=== PATIENT | female | born 1975 | race Caucasian/White ===

== ENCOUNTER → 2017-02-02 | Outpatient (CLI) | payer BC | END | disposition home or self-care (01) | LOC: C.LABSPEC 18:17 | PROVIDERS: ATTEND Physician Assistant Medical | DX: D50.9 Iron deficiency anemia, unspecified (principal) ==

== ENCOUNTER → 2017-02-05 | Outpatient (CLI) | payer BC ==
[2017-02-05 12:58] LABS: BASO % 0.3 %; BASO ABS # 0.02 K/uL (0-0.2); COMPLETE YES; EOS % 1.8 %; HEMATOCRIT 39.5 % (37-47); IG% 0.3 %; LYMPH ABS # 1.91 K/uL (1.2-3.4); MEAN CELL VOLUME 86.6 fL (80-100); MEAN CORPUSCULAR HEMOGLOBIN 28.9 pg (25-34); MEAN CORPUSCULAR HGB CONC 33.4 g/dl (32-36); MEAN PLATELET VOLUME 9.7 fL (7.4-10.4); MONO % 7.8 %; NEUT % 62.8 %; PLATELET COUNT 357 K/uL (130-400); RED BLOOD COUNT 4.56 M/uL (4.2-5.4); WHITE BLOOD COUNT 7.07 K/uL (4.8-10.8)
[2017-02-05 13:42] LABS: THYROID STIMULATING HORMONE 1.95 uIu/ml (0.300-4.500)
== END | disposition home or self-care (01) ==
LOC: C.LAB 12:37
PROVIDERS: ATTEND Physician Assistant Medical
DX: D50.9 Iron deficiency anemia, unspecified (principal); R79.9 Abnormal finding of blood chemistry, unspecified

== ENCOUNTER → 2017-02-10 | Outpatient (CLI) | payer BC ==
[2017-02-10 18:20] LABS: FERRITIN 7.5 ng/ml (8.0-388.0)
== END | disposition home or self-care (01) ==
LOC: C.LABBFT 02-02 18:00
PROVIDERS: ATTEND Physician Assistant Medical
DX: D50.9 Iron deficiency anemia, unspecified (principal)

== ENCOUNTER → 2017-03-10 | Outpatient (CLI) | payer BC ==
--- NOTE | 2017-03-11 15:02 | MAMMOGRAPHY REPORT ---
BILATERAL DIGITAL SCREENING MAMMOGRAM TOMOSYNTHESIS WITH CAD: 03/10/2017 CLINICAL HISTORY: Routine screening. Baseline exam. TECHNIQUE: Breast tomosynthesis in addition to standard 2D mammography was performed. Current study was also evaluated with a Computer Aided Detection (CAD) system. COMPARISON: No prior exams were available for comparison. BREAST COMPOSITION: The tissue of both breasts is almost entirely fatty. FINDINGS: No suspicious masses, calcifications, or areas of architectural distortion are noted in e ither breast. IMPRESSION: ACR BI-RADS CATEGORY 1: NEGATIVE There is no mammographic evidence of malignancy. A 1 year screening mammogram is recommended. The p atient will receive written notification of the results. Approximately 10% of breast cancers are not detected with mammography. A negative mammographic repor t should not delay biopsy if a clinically suggestive mass is present. Gloria Hampton M.D. ah/:03/10/2017 15:32:31 Rack Washer: Estrella DARDEN(R)(M), [facility] letter sent: Normal 1/2 BI-RADS Code: ACR BI-RADS Category 1: Negative
== END | disposition home or self-care (01) ==
LOC: C.MAMM 15:01
PROVIDERS: ATTEND Internal Medicine
DX: Z12.31 Encounter for screening mammogram for malignant neoplasm of breast (principal)

== ENCOUNTER → 2017-07-06 | Outpatient (CLI) | payer BC ==
[2017-07-06 16:41] LABS: BASO % 0.3 %; BASO ABS # 0.02 K/uL (0-0.2); COMPLETE YES; EOS % 1.9 %; HEMATOCRIT 41.5 % (37-47); IG% 0.3 %; LYMPH % 32.1 %; LYMPH ABS # 2.51 K/uL (1.2-3.4); MEAN CELL VOLUME 89.8 fL (80-100); MEAN CORPUSCULAR HEMOGLOBIN 30.1 pg (25-34); MEAN CORPUSCULAR HGB CONC 33.5 g/dl (32-36); NEUT % 57.4 %; PLATELET COUNT 362 K/uL (130-400); RED BLOOD COUNT 4.62 M/uL (4.2-5.4); WHITE BLOOD COUNT 7.83 K/uL (4.8-10.8)
[2017-07-06 17:06] LABS: ALB/GLOB RATIO 0.8 (0.9-2); ALKALINE PHOSPHATASE 57 U/L (45-117); ALT/SGPT 17 U/L (12-78); AST/SGOT 15 U/L (15-37); BLOOD UREA NITROGEN 10 mg/dl (7-18); BUN/CREATININE RATIO 12.6 (10-20); CALCIUM 8.6 mg/dl (8.5-10.1); CARBON DIOXIDE 23 mmol/L (21-32); CHLORIDE 106 mmol/L (98-107); CREATININE 0.81 mg/dl (0.60-1.20); FERRITIN 16.3 ng/ml (8.0-388.0); GLUCOSE 209 mg/dl (70-99); POTASSIUM 4.1 mmol/L (3.5-5.1); SODIUM 138 mmol/L (136-145)
[2017-07-06 17:11] LABS: TOTAL IRON BINDING CAPACITY 467 mcg/dl (250-450)
[2017-07-12 12:30] LABS: IGA SERUM 266 mg/dL (81-463); TIS TRANS IGA 1 U/mL (<4)
== END | disposition home or self-care (01) ==
LOC: C.LABBFT 12:29
PROVIDERS: ATTEND Physician Assistant Medical
DX: R21 Rash and other nonspecific skin eruption (principal); D50.9 Iron deficiency anemia, unspecified

== ENCOUNTER → 2017-09-13 | Outpatient (CLI) | payer BC | END | disposition home or self-care (01) | LOC: C.PAPS 11:22 | PROVIDERS: ATTEND Physician Assistant | DX: Z01.419 Encounter for gynecological examination (general) (routine) without abnormal findings (principal); R87.612 Low grade squamous intraepithelial lesion on cytologic smear of cervix (LGSIL) ==

== ENCOUNTER → 2017-09-14 | Outpatient (CLI) | payer BC ==
[2017-09-14 12:08] LABS: BASO % 0.4 %; BASO ABS # 0.03 K/uL (0-0.2); COMPLETE YES; EOS % 2.9 %; HEMATOCRIT 42.6 % (37-47); IG% 0.3 %; LYMPH % 30.2 %; LYMPH ABS # 2.21 K/uL (1.2-3.4); MEAN CELL VOLUME 90.6 fL (80-100); MEAN CORPUSCULAR HEMOGLOBIN 29.4 pg (25-34); MEAN CORPUSCULAR HGB CONC 32.4 g/dl (32-36); NEUT % 57.2 %; PLATELET COUNT 362 K/uL (130-400); WHITE BLOOD COUNT 7.32 K/uL (4.8-10.8)
== END | disposition home or self-care (01) ==
LOC: C.LAB1850 10:23
PROVIDERS: ATTEND Obstetrics & Gynecology
DX: N92.1 Excessive and frequent menstruation with irregular cycle (principal)

== ENCOUNTER → 2017-10-14 | Outpatient (CLI) | payer BC | END | disposition home or self-care (01) | LOC: C.PATHSPEC 17:18 | PROVIDERS: ATTEND Obstetrics & Gynecology | DX: N92.1 Excessive and frequent menstruation with irregular cycle (principal); R87.613 High grade squamous intraepithelial lesion on cytologic smear of cervix (HGSIL); N72 Inflammatory disease of cervix uteri; N85.8 Other specified noninflammatory disorders of uterus ==

== ENCOUNTER 2017-11-14 09:22 | Observation (INO) | payer BC, OTHER ==
[2017-11-01 12:49] VITALS: BMI 39.0
--- NOTE | 2017-11-01 13:06 | PAT Medication Instructions ---
Service Date Nov 01, 2017. Current Home Medication List Loratadine (Claritin), 10 MG PO QAM Polysaccharide Iron Complex (Ferrex 150), 1 TAB PO QAM Rizatriptan Benzoate (Maxalt), 10 MG PO UD PRN for MIGRAINES Valacyclovir (Valtrex), 1,000 MG PO UD PRN for COLD SORES Venlafaxine Hcl (Venlafaxine Hcl Er), 1 TAB PO QAM Venlafaxine Hcl (Venlafaxine Extended Rel), 75 MG PO QAM Medication Instructions For Your Scheduled Surgery - Hold the following medications the morning of surgery: Loratadine (Claritin), 10 MG PO QAM Polysaccharide Iron Complex (Ferrex 150), 1 TAB PO QAM - Take the following medications the morning of surgery with a sip of water OTHERWISE NOTHING TO EAT OR DRINK AFTER MIDNIGHT: Venlafaxine Hcl (Venlafaxine Hcl Er), 1 TAB PO QAM Venlafaxine Hcl (Venlafaxine Extended Rel), 75 MG PO QAM Rizatriptan Benzoate (Maxalt), 10 MG PO UD PRN for MIGRAINES Valacyclovir (Valtrex), 1,000 MG PO UD PRN for COLD SORES If you have any questions please call us at [phone] or [phone] or [phone]
[2017-11-01 14:20] LABS: CALCIUM 8.9 mg/dl (8.5-10.1); CREATININE 0.67 mg/dl (0.60-1.20); POTASSIUM 4.1 mmol/L (3.5-5.1)
[~2017-11-14] VITALS: Ht 157.5 cm; Wt 98.1 kg
[2017-11-14] VITALS (7 sets, daily range): BP systolic 121–189; BP diastolic 81–93; PULSE 89–106; TEMP 36.5–36.8; O2SAT 89–99; Ht 157.5 cm; Wt 98.1 kg
[~2017-11-14 09:22] MED LIST: ACETAMINOPHEN 1000 MG/100 ML IV IV ONE; CEFAZOLIN 2000MG IV PUSH 10 ML IV SCH; CLR10 PO; LACTATED RINGER'S 1000ML 1,000 ML IV SCH; POLY150C4 PO; RIZA10TA18 PO; VALA500T60 PO; VENL150T33 PO; VENL75CA73 PO
[2017-11-14] MEDS ORDERED: PROPOFOL IV EMULSION 10 MG/ML 20 ML VIAL IV ONE (11:53)
[2017-11-14] MEDS ORDERED: LIDOCAINE HCL 2% 2 ML VIAL (20MG/ML) ONE (11:53)
[2017-11-14] MEDS ORDERED: MIDAZOLAM HCL 1 MG/ML 2ML VIAL ONE (11:54)
[2017-11-14] MEDS ORDERED: FENTANYL CITRATE INJ 50 MCG/1 ML 2 ML VIAL ONE ×2 (11:54→15:51)
--- NOTE | 2017-11-14 12:04 | History & Physical Bridge Note ---
H&P Re-Evaluation Bridge Note: I have examined the patient, reviewed the History & Physical and in the interval since the performance of the History & Physical I have noted the following changes of clinical significance: No changes noted
[2017-11-14] MEDS ORDERED: BUPIVACAINE 0.5 % 5 MG/1 ML MPF 30ML VIAL ONE (12:24)
[2017-11-14] MEDS ORDERED: METHYLENE BLUE 0.5% 10 ML VIAL ONE ×2 (12:24→15:10)
[2017-11-14] MEDS ORDERED: DEXAMETHASONE SOD INJ 4 MG/ML VIAL ONE (14:20)
[2017-11-14] MEDS ORDERED: ONDANSETRON INJ 2 MG/ML 2 ML VIAL ONE ×2 (14:22→15:57)
[2017-11-14] MEDS ORDERED: ONDANSETRON INJ 2 MG/ML 2 ML VIAL IV PRN ×2 (14:45→16:30)
[2017-11-14] MEDS ORDERED: HYDROmorphone INJ 1 MG/ML SYR IV PRN (14:45)
[2017-11-14] MEDS ORDERED: ATROPINE SULFATE 0.1 MG/ML 5ML SYR IV PRN (14:45)
[2017-11-14] MEDS ORDERED: EpHEDrine SULFATE INJ 50 MG/ML AMP IV PRN (14:45)
[2017-11-14] MEDS ORDERED: ESMOLOL HCL 10 MG/ML 10 ML VIAL ONE (15:02)
[2017-11-14] MEDS ORDERED: ROCURONIUM BROMIDE 10 MG/ML 5 ML VIAL IV ONE (15:03)
[2017-11-14] MEDS ORDERED: GLYCOPYRROLATE INJ 0.2 MG/ML VIAL ONE (15:57)
[2017-11-14] MEDS ORDERED: NEOSTIGMINE METHYLSULFATE 5 MG/5 ML SYR ONE (15:57)
[2017-11-14] MEDS ORDERED: TISSEEL FIBRIN SEALANT 4ML TOP ONE (16:00)
--- NOTE | 2017-11-14 16:23 | [facility] Post Operative Brief Note ---
Immediate Operative Summary Operative Date Nov 14, 2017. Pre-Operative Diagnosis Menorrhagia Post-Operative Diagnosis Same as Preop Procedure(s) Performed Total Laparoscopic Hysterectomy Bilateral Salpingectomy Robot Assist; Cystoscopy Surgeon Dr. Ford Monorail Hooker Surgeon(s) Dr. Linares Estimated Blood Loss 20 ML Findings Normal appearing uterus, ovaries. S/p tubal ligation. Specimens A. Uterus, Cervix, Bilateral Fallopian Tubes Drains askew, clear yellow Anesthesia general Complication(s) None Disposition Recovery Room / PACU
[2017-11-14] MEDS ORDERED: PROMETHAZINE HCL INJ 12.5 MG in SODIUM CHLORIDE 0.9% 50ML 50 ML IV PRN (16:30)
[2017-11-14] MEDS ORDERED: IBUPROFEN 600 MG TAB PO PRN (16:30)
[2017-11-14] MEDS ORDERED: BISACODYL 10 MG SUPP PR PRN (16:30)
[2017-11-14] MEDS ORDERED: OXYCODONE/ACETAMINOPHEN 5-325 TAB PO PRN ×2 (16:30)
[2017-11-14] MEDS ORDERED: SIMETHICONE 80 MG CHEW PO PRN (16:30)
[2017-11-14] MEDS ORDERED: KETOROLAC TROMETHAMINE 30 MG/ML VIAL IV. PRN (16:30)
[2017-11-14] MEDS ORDERED: MAGNESIUM HYDROXIDE SUSP 30 ML UDC PO PRN (16:30)
[2017-11-14] MEDS ORDERED: IV FLUIDS COMPLETED PRN (16:45)
[2017-11-14] MEDS: FENTANYL CITRATE INJ 50 MCG/1 ML 2 ML VIAL IV PRN ×2 (16:50→16:59)
[2017-11-14] MEDS ORDERED: NURSING VERBAL MED ORDER ONE ×2 (17:12→17:30)
[2017-11-14] MEDS ORDERED: METOPROLOL TARTRATE 1 MG/ML VIAL ONE ×2 (17:13→17:29)
[2017-11-14] MEDS ORDERED: OXYC-57 PO (17:26)
--- NOTE | 2017-11-14 17:43 | Anesthesiology Progress Note ---
Anesthesia Post Op Note Date & Time Nov 14, 2017 at 17:43 Vital Signs Pain Intensity: 0 Vital Signs Past 12 Hours Date Time Temp Pulse Resp B/P (MAP) Pulse Ox O2 Delivery O2 Flow Rate FiO2 11/14/17 17:35 99 18 138/85 97 Nasal Cannula 4 11/14/17 17:31 101 150/88 11/14/17 17:25 36.9 96 13 150/88 96 Nasal Cannula 4 11/14/17 17:17 113 137/86 11/14/17 17:15 113 14 137/86 94 Nasal Cannula 4 11/14/17 17:05 117 12 156/80 96 Nasal Cannula 4 11/14/17 16:55 112 21 147/71 94 Oxymask 10 11/14/17 16:45 99 17 140/68 94 Oxymask 10 11/14/17 16:36 36.6 109 12 106/64 96 Oxymask 10 11/14/17 09:47 36.8 89 17 189/89 (122) 95 Room Air Notes Mental Status: alert / awake / arousable, participated in evaluation Pt Amnestic to Procedure: Yes Nausea / Vomiting: adequately controlled Pain: adequately controlled Airway Patency, RR, SpO2: stable & adequate BP & HR: stable & adequate Hydration State: stable & adequate Anesthetic Complications: no major complications apparent
--- NOTE | 2017-11-14 18:10 | Medical Student: [facility] ---
Operative Report Operative Date Nov 14, 2017. Pre-Operative Diagnosis Menorrhagia Post-Operative Diagnosis Menorrhagia Procedure(s) Performed Laproscopic (via Da Dean robot) total hysterectomy with bilateraly salpingectomy. Cystoscopy Surgeon Dr. Cathie Ford Drawer Fitter Surgeon(s) Dr. Alta Linares Estimated Blood Loss 20ml Findings Normal appearing uterus, cervix, ovaries, and fallopian tubes. History of tubal ligation. Specimens 1 specimen: Uterus, cervix, right and left fallopian tubes Drains askew (clear, yellow urine) Anesthesia general Complication(s) None Disposition Recovery Room / PACU
[2017-11-14] MEDS: DOCUSATE SODIUM 100 MG CAP PO SCH (19:49)
[2017-11-14 20:15] LABS: HEMATOCRIT 38.9 % (37-47)
[2017-11-15 04:20] VITALS: BP 115/70; PULSE 108; TEMP 36.7; O2SAT 95
[2017-11-15 06:43] LABS: BASO % 0.1 %; BASO ABS # 0.01 K/uL (0-0.2); HEMATOCRIT 37.6 % (37-47); HEMOGLOBIN 12.6 g/dL (12.0-16.0); IG# 0.04 K/uL (0.00-0.02); LYMPH % 9.2 %; LYMPH ABS # 1.45 K/uL (1.2-3.4); MEAN CORPUSCULAR HEMOGLOBIN 30.1 pg (25-34); MEAN CORPUSCULAR HGB CONC 33.5 g/dl (32-36); MEAN PLATELET VOLUME 9.7 fL (7.4-10.4); MONO % 9.2 %; MONO ABS # 1.44 K/uL (0.11-0.59); NEUT % 81.2 %; NEUT ABS # 12.75 K/uL (1.4-6.5); PLATELET COUNT 386 K/uL (130-400); RED CELL DISTRIBUTION WIDTH CV 13.8 % (11.5-14.5); RED CELL DISTRIBUTION WIDTH SD 45.5 fL (36.4-46.3); WHITE BLOOD COUNT 15.69 K/uL (4.8-10.8)
[2017-11-15 07:13] LABS: CALCIUM 8.5 mg/dl (8.5-10.1); CREATININE 0.87 mg/dl (0.60-1.20); POTASSIUM 3.8 mmol/L (3.5-5.1)
[2017-11-15 07:15] VITALS: BP 132/79; PULSE 101; TEMP 37; O2SAT 95
--- NOTE | 2017-11-15 07:38 | Anesthesiology Progress Note ---
Anesthesia Post Op Note Date & Time Nov 15, 2017 at 07:38 Vital Signs Pain Intensity: 5.5 Vital Signs Past 12 Hours Date Time Temp Pulse Resp B/P (MAP) Pulse Ox O2 Delivery O2 Flow Rate FiO2 11/15/17 04:20 36.7 108 16 115/70 (85) 95 Room Air 11/14/17 23:10 36.7 106 16 121/81 (94) 95 Room Air 11/14/17 23:10 Room Air 11/14/17 20:50 102 18 138/93 (108) 96 Room Air 11/14/17 19:50 36.6 99 20 127/84 (98) 98 Room Air Notes Mental Status: alert / awake / arousable, participated in evaluation Pt Amnestic to Procedure: Yes Nausea / Vomiting: adequately controlled Pain: adequately controlled Airway Patency, RR, SpO2: stable & adequate BP & HR: stable & adequate Hydration State: stable & adequate Anesthetic Complications: no major complications apparent
--- NOTE | 2017-11-15 07:51 | Discharge Instructions ---
Discharge Instructions Date of Service Nov 15, 2017. Admission Reason for Admission: Menorrhagia W/Irregular Cycle Discharge Discharge Diagnosis / Problem: s/p hysterectomy Discharge Goals Goal(s): Routine recovery after surgery Activity Recommendations Activity Limitations: per Instructions/Follow-up section . Instructions / Follow-Up Instructions / Follow-Up POST OPERATIVE: BOWEL FUNCTION/MEDICATIONS: 1. Constipation pain and discomfort are the most common complaints 5-7 days after surgery. Points 2-6 address the things that can help. 2. Chewing gum can help stimulate the gut and help improve digestion and motility. 3. Milk of Magnesia 1-2 times per day until return of bowel function. 4. Colace is a stool softener that helps. Taking this 2-3 times per day until bowel function returns to normal is highly recommended. 5. Dulcolax is a laxative that may be used if several days have passed without a bowel movement. Alternatively Miralax may be used daily instead. 6. Drink plenty of fluids as this will also reduce constipation. 7. Narcotic pain medications will be prescribed by your physician. They are safe to use and we encourage you to use them. If you are not allergic, ibuprofen will also be prescribed. Many patients will be able to transition off of the narcotic medications to ibuprofen by postoperative day 3. ACTIVITY RECOMMENDATIONS: 1. Get plenty of rest and listen to your body. If you are tired, take a nap. 2. You may shower, but do not take a tub bath until you see your doctor at the 2 week post operative visit. 3. Absolutely NO intercourse and nothing in the vagina until you are examined by your doctor at the 6 week visit. At that visit it will be determined when such activities can be resumed. This can range from 6-12 weeks after your surgery depending on healing time. 4. The main physical activity in the first week should be walking. By the second week you can slowly increase activity. There are no limits on walking up and down stairs. 5. Do not lift more than 5-10 lbs for 4 weeks. Remember the "one-handed rule", i.e. if you can lift something with only one hand it's likely okay. 6. Minimize foxer like vacuuming and exercising for 4 weeks. "Overdoing it" can lead to incisions not healing, pain and vaginal bleeding , so again, listen to your body. 7. Driving can be resumed when you feel able. Do not drive within 24 hours of taking a narcotic medication. EXPECTATIONS: 1. Vaginal spotting, bleeding and discharge are common after surgery. There may even be an odor to the discharge which is often related to sutures used in the vagina. If you experience heavy vaginal bleeding, call the office number day or night [phone]. 2. Bladder discomfort is common after surgery from the catheter. This usually resolves in 1-2 weeks. 3. By the end of the 3rd or 4th week you should be feeling much better. It may take up to 6 weeks for your energy levels to return to normal. 4. Narcotic medications have side effects such as: dizziness, headache, nausea and/or vomiting. If you suspect your pain medication is causing problems, call our office and we may be able to prescribe an alternate medication. 5. The skin incisions are often covered with a liquid bandage. This will gradually peel off over time. CALL THE OFFICE IF YOU HAVE ANY OF THE FOLLOWIN. Temperature of 101 degrees or higher. 2. Severe abdominal or pelvic pain not relieved by pain medication. 3. Persistent nausea or vomiting. 4. Increased pain with urination or difficulty urinating. 5. Bright red bleeding that soaks more than 1 pad per hour. CONTACT PHONE NUMBERS: Main Office: [phone] Surgical Nurse: [phone] extension [phone] Avoid all tobacco products. If you need help to stop smoking, call [place]'s FREE QUITLINE at . This is a free call. Current Hospital Diet Patient's current hospital diet: Regular Diet Discharge Diet Recommended Diet: Regular Diet Procedures Procedures Performed: Total Laparoscopic Hysterectomy Bilateral Salpingectomy Robot Assist; Cystoscopy Pending Studies Studies pending at discharge: yes List of pending studies: pathology Medical Emergencies . Who to Call and When: Medical Emergencies: If at any time you feel your situation is an emergency, please call 911 immediately. . Non-Emergent Contact Non-Emergency issues call your: Primary Care Provider, Road Boss . . "Provider Documentation" section prepared by Cathie Ford. . VTE Core Measure Inpt VTE Proph given/why not?: SCD's [place] Drug Monitoring Program Search Results: patient reviewed within database
--- NOTE | 2017-11-15 08:10 | OPERATIVE REPORT ---
DATE OF OPERATION: 11/14/2017 PREOPERATIVE DIAGNOSIS: Menorrhagia. POSTOPERATIVE DIAGNOSIS: Same. PROCEDURES PERFORMED: Total laparoscopic hysterectomy and bilateral salpingectomy with assistance of da Dean robot and cystoscopy. SURGEON: Cathie Ford DO. EDUCATION PARAPROFESSIONAL: Dr. Linares. ESTIMATED BLOOD LOSS: 20 mL FINDINGS: Normal appearing uterus and ovaries status post tubal ligation. SPECIMEN: Uterus, cervix, bilateral fallopian tubes. DRAINS: Wilcox, clear yellow. ANESTHESIA: General. COMPLICATIONS: None. DISPOSITION: Stable and good to recovery room. INDICATIONS FOR PROCEDURE: The patient is a 42-year-old with history of heavy menses. We had reviewed all options in the office for control of menses, she is unwilling to use hormonal methods and unwilling to use medications such as NSAIDs or tranexamic acid and unwilling to consider less invasive methods like Mirena IUD or endometrial ablation. She desired definitive surgical treatment with hysterectomy. DESCRIPTION OF PROCEDURE: The patient was seen in the preoperative holding area where risks, benefits, alternatives to surgery were reviewed. She elected to proceed with surgery. She had previously signed informed consent under no duress in the office. The patient was taken to the operating room where general anesthesia was introduced. She was infused with 2 grams of Ancef preoperatively. She was prepared and draped in the usual sterile fashion with feet in Yellofin stirrups in dorsal lithotomy position. Timeout was confirmed. A Wilcox catheter was placed in the bladder, the weighted speculum was placed in the vagina. Cervix was visualized and the anterior lip was grasped with single tooth tenaculum. Bilateral stay sutures were placed at 3 and 9 o'clock on the cervix. The VCare uterine later was placed and suture tied into place on the cervix. Gloves were changed and attention was then turned to the abdomen where a supraumbilical incision was made and carried through to the intraabdominal cavity using the open Immanuel technique. Trocar was placed. The camera confirmed intrauterine placement and the abdomen was insufflated with 15 mmHg with CO2 gas. The patient was placed in steep Trendelenburg position. Bilateral trocar sites were placed for a total of 5 incisions with 2 on each side and the camera supraumbilical incision. These were placed under direct visualization. The bowel was swept out of the way and the robot was docked. The left fallopian tube was transected from its mesosalpinx with hot scissors. This was then removed and sent to pathology. In a similar fashion, the right fallopian tube was transected. The uteroovarian ligament was coagulated and transected on the left side as well as the left round ligament. In a similar fashion, this procedure was performed on the right side. The bladder flap was created across the anterior aspect of the uterine broad ligament. The bladder was swept out of the way. Bilateral uterine vessels were skeletonized and subsequently coagulated and transected. Please note that prior to any transection, bilateral ureters were identified and peristalsing in the pelvic sidewall. The cervix and uterus were removed from the vaginal cuff using a circumferential incision. The uterus was then delivered through the vagina. The vaginal cuff was reapproximated using a running stitch of 0 V-Loc suture. The pelvis was irrigated and suctioned, and Tisseel hemostatic agent was applied across the raw edges of the operative field. Cystoscopy revealed bilateral ureteral orifices with urine jets as well as a normal appearing cavity. The robot was undocked. All trocars were removed. The supraumbilical fascial incision was reapproximated using 0 Vicryl in a running locked stitch. All incision sites were reapproximated using 4-0 Vicryl in a running subcuticular stitch. Dermabond was applied. THE PATIENT HAD REPORTED SEVERE ITCHING FROM CHLORHEXIDINE WIPES, and therefore, instead of ChloraPrep skin prep prior to surgery, Betadine was used to prevent another reaction. The patient tolerated the procedure well. Sponge, instrument and needle counts were correct x2 at the conclusion of the case. The patient was taken to the postoperative recovery area in stable and good condition. I attest to the content of the Intraoperative Record and any orders documented therein. Any exceptions are noted below. JOSÉD
[2017-11-15] MEDS: DOCUSATE SODIUM 100 MG CAP PO SCH (08:33)
[2017-11-15 08:35] VITALS: BP 132/79; PULSE 101; TEMP 37; O2SAT 95
--- NOTE | 2017-11-15 09:00 | OB/GYN Progress Note ---
SUPERVISOR COSTUMING Progress Note Date of Service Nov 15, 2017. Subjective conversation w/ patient, physical exam Ambulation: ambulating normally Voiding: no voiding problems Passing Gas: Yes Diet Tolerance: Regular Diet Pain: controlled Review of Systems Constitutional: No problem reported Respiratory: No problem reported Cardiac: No problem reported Breast: No problem reported Abdomen: No problem reported Female : No problem reported Objective Vital Signs Date Time Temp Pulse Resp B/P (MAP) Pulse Ox O2 Delivery O2 Flow Rate FiO2 11/15/17 04:20 36.7 108 16 115/70 (85) 95 Room Air 11/14/17 23:10 36.7 106 16 121/81 (94) 95 Room Air 11/14/17 23:10 Room Air 11/14/17 20:50 102 18 138/93 (108) 96 Room Air 11/14/17 19:50 36.6 99 20 127/84 (98) 98 Room Air 11/14/17 18:50 95 18 127/84 (98) 99 Room Air 11/14/17 18:20 95 18 138/91 (107) 97 Room Air 11/14/17 17:50 96 Room Air 11/14/17 17:50 89 Room Air 11/14/17 17:50 36.5 102 18 132/85 (101) 89 Room Air 11/14/17 17:50 96 Nasal Cannula 4.0 11/14/17 17:35 99 18 138/85 97 Nasal Cannula 4 11/14/17 17:31 101 150/88 11/14/17 17:25 36.9 96 13 150/88 96 Nasal Cannula 4 11/14/17 17:17 113 137/86 11/14/17 17:15 113 14 137/86 94 Nasal Cannula 4 11/14/17 17:05 117 12 156/80 96 Nasal Cannula 4 11/14/17 16:55 112 21 147/71 94 Oxymask 10 11/14/17 16:45 99 17 140/68 94 Oxymask 10 11/14/17 16:36 36.6 109 12 106/64 96 Oxymask 10 11/14/17 09:47 36.8 89 17 189/89 (122) 95 Room Air Physical Exam General Appearance: WELL-APPEARING, NO APPARENT DISTRESS Respiratory/Chest: no respiratory distress Cardiovascular: regular rate, rhythm Abdomen: non tender, soft Incision Description: Clean, Dry & Intact Extremities: normal inspection Laboratory Results Last 24 Hours Test 11/14/17 09:41 11/14/17 20:03 11/15/17 06:18 Hemoglobin 13.0 g/dL 12.6 g/dL Hematocrit 38.9 % 37.6 % White Blood Count 15.69 K/uL Red Blood Count 4.18 M/uL Mean Corpuscular Volume 90.0 fL Mean Corpuscular Hemoglobin 30.1 pg Mean Corpuscular Hemoglobin Concent 33.5 g/dl Platelet Count 386 K/uL Mean Platelet Volume 9.7 fL Neutrophils (%) (Auto) 81.2 % Lymphocytes (%) (Auto) 9.2 % Monocytes (%) (Auto) 9.2 % Eosinophils (%) (Auto) 0.0 % Basophils (%) (Auto) 0.1 % Neutrophils # (Auto) 12.75 K/uL Lymphocytes # (Auto) 1.45 K/uL Monocytes # (Auto) 1.44 K/uL Eosinophils # (Auto) 0.00 K/uL Basophils # (Auto) 0.01 K/uL RDW Standard Deviation 45.5 fL RDW Coefficient of Variation 13.8 % Immature Granulocyte % (Auto) 0.3 % Immature Granulocyte # (Auto) 0.04 K/uL Sodium Level 135 mmol/L Potassium Level 3.8 mmol/L Chloride Level 102 mmol/L Carbon Dioxide Level 26 mmol/L Anion Gap 7.0 mmol/L Blood Urea Nitrogen 9 mg/dl Creatinine 0.87 mg/dl Est Creatinine Clear Calc Drug Dose 92.2 ml/min Estimated GFR () 95.2 Estimated GFR (Non- 82.2 BUN/Creatinine Ratio 10.1 Random Glucose 172 mg/dl Calcium Level 8.5 mg/dl Assessment and Plan Post-Op Day Number: 1 Continue Routine Care: POD#1 s/p robotic-assisted total laparoscopic hysterectomy with bilateral salpingectomy and cystoscopy. Doing well. Discharge home today. Discharge instructions reviewed. RTO 2w and 6w postop.
--- NOTE | 2017-11-16 09:38 | Discharge Summary ---
Discharge Summary Date of Service Nov 16, 2017. Discharge Summary Admission Date: Nov 14, 2017 at 16:24 Discharge Date: Nov 15, 2017 Discharge Disposition: Home Principal Diagnosis: menorrhagia Procedures: Robotic-assisted total laparoscopic hysterectomy with bilateral salpingoophorectomy, cystoscopy Consultations: anesthesiology Discharge Exam Please see documentation from exam on day of discharge. Hospital Course Patient underwent the above procedures, was observed overnight postoperatively, and was discharged to home in the morning. Routine recovery. Total Time Spent: Less than 30 minutes This includes examination of the patient, discharge planning, medication reconciliation, and communication with other providers. Discharge Instructions Please refer to the electronic Patient Visit Report (Discharge Instructions) for additional information. Follow-Up 2w and 4w postoperatively.
== END 2017-11-15 09:30 | disposition home or self-care (01) ==
LOC: C.ACU 09:22 → C.MS4N 16:24 → ENRESERV 16:56
PROVIDERS: ADMIT Obstetrics & Gynecology; ATTEND Obstetrics & Gynecology
DX: N92.0 Excessive and frequent menstruation with regular cycle (principal); R87.613 High grade squamous intraepithelial lesion on cytologic smear of cervix (HGSIL); N72 Inflammatory disease of cervix uteri; N80.0 Endometriosis of uterus; N83.8 Other noninflammatory disorders of ovary, fallopian tube and broad ligament; I10 Essential (primary) hypertension; F32.9 Major depressive disorder, single episode, unspecified; E78.5 Hyperlipidemia, unspecified; Z91.012 Allergy to eggs; Z91.013 Allergy to seafood; E66.9 Obesity, unspecified; Z68.39 Body mass index [BMI] 39.0-39.9, adult; Z83.3 Family history of diabetes mellitus; Z81.8 Family history of other mental and behavioral disorders
CPT/HCPCS: 58571; S2900

== ENCOUNTER → 2018-03-14 | Outpatient (CLI) | payer OTHER ==
[~2018-03-14] MED LIST changes: -ACETAMINOPHEN 1000 MG/100 ML IV IV ONE; -CEFAZOLIN 2000MG IV PUSH 10 ML IV SCH; -LACTATED RINGER'S 1000ML 1,000 ML IV SCH
--- NOTE | 2018-03-14 15:05 | MAMMOGRAPHY REPORT ---
BILATERAL DIGITAL SCREENING MAMMOGRAM TOMOSYNTHESIS WITH CAD: 03/14/2018 CLINICAL HISTORY: Routine screening. Patient has no complaints. TECHNIQUE: Breast tomosynthesis in addition to standard 2D mammography was performed. Current study was also evaluated with a Computer Aided Detection (CAD) system. COMPARISON: Comparison is made to exam dated: 03/10/2017 mammogram - [facility]. BREAST COMPOSITION: The tissue of both breasts is almost entirely fatty. FINDINGS: The parenchymal pattern is unchanged. No developing mass, architectural distortion or clus ter of suspicious microcalcifications is seen in either breast. IMPRESSION: ACR BI-RADS CATEGORY 2: BENIGN There is no mammographic evidence of malignancy. A 1 year screening mammogram is recommended. The pa tient will receive written notification of the results. Approximately 10% of breast cancers are not detected with mammography. A negative mammographic report should not delay biopsy if a clinically suggestive mass is present. Shea Ohara M.D. ay/:03/14/2018 09:17:28 Electrical Test Technician: Estrella DARDEN(Kirk)(Jayden), [facility] letter sent: Normal 1/2 BI-RADS Code: ACR BI-RADS Category 2: Benign
== END | disposition home or self-care (01) ==
LOC: C.MAMM 08:42
PROVIDERS: ATTEND Internal Medicine
DX: Z12.31 Encounter for screening mammogram for malignant neoplasm of breast (principal)

== ENCOUNTER 2021-08-16 04:47 | Inpatient (IN) ==
[2021-08-16] MEDS ORDERED: ONDANSETRON INJ 2 MG/ML 2 ML VIAL IV STA (05:30)
[2021-08-16] MEDS ORDERED: HYDROmorphone INJ 0.5 MG/0.5 ML SYR IV STA ×2 (05:30→06:25)
[2021-08-16] MEDS ORDERED: SODIUM CHLORIDE 0.9% 1000ML 1,000 ML IV ONE (05:30)
[2021-08-16 06:24] LABS: Albumin Level 3.5 gm/dl (3.4-5.0); BUN Creatinine Ratio 13.5 (10-20); Basophils # (auto) 0.03 K/uL (0-0.2); Basophils % (auto) 0.2 %; Calcium 9.3 mg/dl (8.5-10.1); Creatinine Clr Calc Pharmacy 81.6 ml/min; Eosinophils % (auto) 0.8 %; Est GFR (African American) 79.2 ml/min; Est GFR (Non-African American) 68.3 ml/min; Hematocrit (blood only) 44.6 % (37-47); Hemoglobin 14.7 g/dL (12.0-16.0); Immature Granulocytes # (auto) 0.07 K/uL (0.00-0.02); Immature Granulocytes % (auto) 0.5 %; Lymphocytes # (auto) 2.13 K/uL (1.2-3.4); Lymphocytes % (auto) 16.3 %; Mean Corpuscular Hemoglobin 29.9 pg (25-34); Mean Corpuscular Volume 90.8 fL (80-100); Mean Platelet Volume 10.2 fL (7.4-10.4); Monocytes # (auto) 0.86 K/uL (0.11-0.59); Monocytes % (auto) 6.6 %; Neutrophils # (auto) 9.85 K/uL (1.4-6.5); Neutrophils % (auto) 75.6 %; Platelet Count 324 K/uL (130-400); Potassium 3.6 mmol/L (3.5-5.1); RDW Coefficient of Variation 13.6 % (11.5-14.5); RDW Standard Deviation 44.6 fL (36.4-46.3); Red Blood Count 4.91 M/uL (4.2-5.4); White Blood Count 13.04 K/uL (4.8-10.8)
[2021-08-16 06:27] LABS: Albumin Globulin Ratio 0.9 (0.9-2); Bilirubin,Total 0.2 mg/dl (0.2-1); Globulin 3.8 gm/dl (2.5-4.0); Total Protein 7.3 gm/dl (6.4-8.2)
--- NOTE | 2021-08-16 07:42 | CT Scan Report ---
CT OF THE ABDOMEN AND PELVIS WITHOUT CONTRAST CLINICAL HISTORY: Right flank pain. COMPARISON STUDY: No previous studies for comparison. TECHNIQUE: Axial images of the abdomen and pelvis were obtained without IV contrast. Images were revi ewed in the axial, sagittal, and coronal planes. Automated exposure control was utilized for the judie dy. A dose lowering technique was utilized adhering to the principles of ALARA. FINDINGS: Lung bases are unremarkable. A 1.3 cm right ureteropelvic junction calculus results in mode rate right hydronephrosis. There is a 3 mm right renal calculus. There is moderate perinephric and pe riureteral stranding. There are no left-sided urinary calculi. Evaluation of the remainder of the abd omen and pelvis is suboptimal on this unenhanced exam. Hepatic steatosis is present. The spleen, adre nal glands and pancreas are unremarkable. There is no evidence for a bowel obstruction. Small fat-con taining periumbilical hernia is present. The appendix is normal. No lymphadenopathy is present. No as cites. No acute fracture or suspicious lesion is identified within the visualized skeletal structures . IMPRESSION: 1. 1.3 cm right ureteropelvic junction calculus which results in moderate right hydronephrosis. 2. 3 mm right renal calculus. ACT 112: Negative or not required by law. Electronically signed by: Sammy Tesfaye M.D. 08/16/2021 7:40 AM
[2021-08-16 08:01] LABS: Appearance Urine Cloudy (Clear); Bacteria Urine Automated 1+ (Negative); Bilirubin Urine Negative (Negative); Blood Urine Trace (Negative); Cast Urine Automated 0 /lpf (0-5); Color Urine Yellow; Glucose Urine UA Negative (Negative); Ketones Urine Negative (Negative); Leukocyte Esterase Urine Negative (Negative); Nitrite Urine Negative (Negative); Protein Urine Negative (Negative); RBC Urine Automated 0-4 /hpf (0-4); Specific Gravity Urine 1.011 (1.000-1.030); Urobilinogen Urine Negative (Negative); pH Urine 7.5 (4.5-7.5)
--- NOTE | 2021-08-16 08:58 | History & Physical Report ---
Date of Service August 16, 2021 Assessment & Plan (1) Ureteropelvic junction (UPJ) obstruction: Plan: -Secondary to nephrolithiasis with associated hydronephrosis and perinephric fat stranding -Will be hospitalized for urologic consultappreciate recommendations -Briefly spoke to urology who has no plans for any intervention today. Okay to initiate oral intake with n.p.o. diet after midnight -Continue IV hydration -Antiemetics as needed -Dilaudid for pain control -Strain urine but with given size, likely will not pass on her own -Flomax initiated -Empiric antibiotic therapy (Cipro); however, urinalysis does not appear to be grossly infected. Urine culture and blood cultures ordered (2) Nephrolithiasis: Plan: -See above (3) Leukocytosis: Plan: -Likely secondary to vomiting/reactive -Urinalysis does not appear to be grossly infected but urine culture orderedpending -Start empiric antibiotic therapy until assessed by urologyappreciate recommendations (4) Essential hypertension: Plan: -Continue amlodipine (5) Gluten intolerance: Plan: -Diet controlled. (6) Hyperlipidemia: Plan: -Diet controlled (7) Iron deficiency anemia: Plan: -Hold iron for now as patient already nauseated. Okay to hold for a few days (8) Depression: Plan: -Continue Effexor Plan: -Lovenox for DVT prophylaxis -Plan of care will be discussed with Dr. Brooks History of Present Illness Chief Complaint: Flank pain and vomiting Primary Care Provider: Lamin Morin MD Mrs. Weathers is a 46-year-old white female with an underlying past medical history of depression, hypertension, ANTONIO, and multiple food allergies. She presented to the ED in the overnight hours complaining of right-sided flank pain and vomiting that occurred late last night. Was in her usual state of health until about 10 PM when she developed right-sided flank pain. Had a difficult time getting to sleep and eventually awoke around 2 AM this morning complaining of severe right-sided flank pain with violent vomiting. She presented to the ED where she was found to be hemodynamically stable and afebrile. Her white blood cell count was elevated at 13.04 but the rest of her lab data was unremarkable. Her urinalysis shows trace blood but no nitrites or leukocytes. CT of the abdomen and pelvis shows a 1.3 cm right ureteropelvic junction stone with associated hydronephrosis and perinephritic fat stranding. She was medicated with Dilaudid and Zofran and will be hospitalized for further evaluation and c are. Allergies Allergy/AdvReac Type Severity Reaction Status Date / Time egg Allergy Severe throat Verified 05/12/21 15:22 swells Beef Containing Products Allergy Mild HIVES Verified 05/12/21 15:22 cinnamon Allergy Mild HIVES Verified 05/12/21 15:22 milk Allergy Mild HIVES - Verified 05/12/21 15:22 COWS MILK oats Allergy Mild HIVES Verified 05/12/21 15:22 orange Allergy Mild HIVES Verified 05/12/21 15:22 scallops Allergy Mild HIVES Verified 05/12/21 15:22 shellfish derived Allergy Mild HIVES Verified 05/12/21 15:22 wheat Allergy Mild HIVES Verified 05/12/21 15:22 TURKEY Allergy Mild HIVES Uncoded 05/12/21 15:22 Home Medications Medication Instructions Recorded Confirmed Type loratadine 10 mg tablet (Claritin) 10 mg PO QAM 07/23/19 08/16/21 History albuterol sulfate 90 mcg/actuation 2 puff INHALATION QID PRN #8.5 g 07/22/20 08/16/21 Rx aerosol inhaler (ProAir HFA) rizatriptan 10 mg disintegrating See Rx Instructions PO .COMPLEX 02/04/21 08/16/21 Rx tablet #12 tab topiramate 50 mg tablet 50 mg PO BID #60 tab 02/04/21 08/16/21 Rx polysaccharide iron complex 150 mg 150 mg PO DAILY #90 cap 04/13/21 08/16/21 Rx iron capsule (Ferrex) nystatin 100,000 unit/gram topical 1 applic TOPICAL DAILY #30 g 04/14/21 08/16/21 Rx powder amlodipine 5 mg tablet 5 mg PO DAILY #90 tab 05/26/21 08/16/21 Rx venlafaxine 150 mg 150 mg PO DAILY #30 cap 06/24/21 08/16/21 Rx capsule,extended release 24 hr venlafaxine 75 mg capsule,extended 75 mg PO DAILY #30 cap 06/24/21 08/16/21 Rx release 24 hr Past Med/Surg History Surgical History H/O oral surgery H/O: hysterectomy Hx of tubal ligation Family History Grandfather (Maternal) Coronary heart disease Mother Depression Diabetes Hypertension Hypercholesteremia Grandmother (Maternal) Depression Sister Epilepsy Father Hypertension Denies family history of Ovarian cancer Breast cancer Colorectal cancer Social History Smoking Status: Never smoker Hx Alcohol Use: Yes Hx Substance Use: No Preferred Language: Upper Sorbian Communication Ability: Effective Ingot Weigher Required: No Beliefs That Will Affect Care: None marital status: Current Living Situation: Spouse Feels Safe at Home: Yes caffeine: Yes Seatbelt Use: always Sunscreen Use: Yes Assistive Devices: None Review of Systems Review of Systems: All systems reviewed and are unremarkable except as noted in HPI and below Plus right-sided flank pain, nausea and vomiting. Denies fevers, chills, headache, nasal congestion, sore throat, cough, chest pain, shortness of breath, palpitations, orthopnea, PND, diarrhea, constipation, dysuria, hematuria, frequency, back pain, joint pain or swelling, easy bruising or bleeding, skin lesions or rashes. Physical Exam Physical Exam: General: Resting comfortably in her hospital bed. Currently does not appear to be in significant discomfort.. NAD. HEENT: Head is AT/NC buccal mucosa is moist and pink Neck: No JVD. Negative hepatojugular reflex Cardiac: RRR without M/G/R Lungs: CTA without W/R/R Abdomen: Normoactive X4. Soft and nontender in all quadrants. + Right-sided CVA tenderness noted Extremities: No peripheral clubbing cyanosis or edema Neuro: A&O X4 cranial nerves II through XII are grossly intact no focal neuro deficits Skin: No obvious skin lesions or rashes Psych: Appropriate affect pleasant and cooperative Results & Data Results & Data ([facility]) Vital Signs (Past 12 Hours) Vital Signs Temp Pulse Pulse Resp BP BP Pulse Ox 08/16/21 06:49 65 14 110/73 93 08/16/21 04:56 36.6 C 85 20 148/92 H 95 Laboratory Results 08/16/21 05:55 08/16/21 05:55 Urinalysis is not grossly infected as it is nitrite and leukocyte esterase negat velia Covid test negative Diagnostic Findings CT of the abdomen pelvis: FINDINGS: Lung bases are unremarkable. A 1.3 cm right ureteropelvic junction debra culus results in moderate right hydronephrosis. There is a 3 mm right renal calculus. There is moderate perinephric and periureteral stranding. There are no left-sided urinary calculi. Evaluation of the remainder of the abdomen and pelvis is suboptimal on this unenhanced exam. Hepatic steatosis is present. The spleen, adrenal glands and pancreas are unremarkable. There is no evidence for a bowel obstruction. Small fat-containing periumbilical hernia is present. The appendix is normal. No lymphadenopathy is present. No ascites. No acute fracture or suspicious lesion is identified within the visualized skeletal structures. IMPRESSION: 1. 1.3 cm right ureteropelvic junction calculus which results in moderate right hydronephrosis. 2. 3 mm right renal calculus. Code Status & VTE Plan VTE Prophylaxis Plan VTE Prophylaxis will be ordered: Yes Supervising Physician Co-Signing Physician Notes Attending note: patient seen and examined with Chelsie HARRIS. I agree with her exam, history, ROS, assessment and plan. I personally reviewed the labs and imaging. I discussed with Dr. Mario with urology. - 1.3 cm ureteral stone at the UBJ. pain control, fluids, antibiotics follow up urine cultures urology consulted NPO after midnight, plan for cysto tomorrow with ureteral stent PG Care Time/CCT Total # of Minutes Spent Total Time Spent with Patient: Total time spent is greater than 50% in coordination of care (as documented) at patient's floor/unit and/or counseling patient: [place] [address] Initial Inpt Care Lvl 2 Patient Type Established Diagnoses Ureteropelvic junction (UPJ) obstruction N13.5 Nephrolithiasis N20.0 Leukocytosis D72.829 Essential hypertension I10 Gluten intolerance K90.41 Hyperlipidemia E78.5 Iron deficiency anemia D50.9 Depression F32.9
[2021-08-16] MEDS ORDERED: IRON POLYSACCHARIDE COMPLEX 150 MG CAPSULE PO SCH (09:00)
[2021-08-16] MEDS: CIPROFLOXACIN / D5W 400 MG/200 ML BAG IV SCH ×2 (09:21→20:26)
[2021-08-16] MEDS: HYDROmorphone INJ 0.5 MG/0.5 ML SYR IV PRN ×3 (09:21→20:32)
[2021-08-16] MEDS: ONDANSETRON INJ 2 MG/ML 2 ML VIAL IV PRN ×2 (09:22→18:18)
[2021-08-16] MEDS: SODIUM CHLORIDE 0.9% 1000ML 1,000 ML IV SCH ×3 (09:30→22:33)
[2021-08-16] MEDS ORDERED: ACETAMINOPHEN 325 MG TAB PO PRN (13:00)
[2021-08-16] MEDS: amLODIPine BESYLATE 5 MG TAB PO SCH (15:19)
[2021-08-16] MEDS: TOPIRAMATE 50 MG TAB PO SCH ×2 (15:19→19:34)
[2021-08-16] MEDS: VENLAFAXINE HCL XR 150 MG CAPXR PO SCH (15:20)
[2021-08-16] MEDS: TAMSULOSIN HCL 0.4 MG CAP PO SCH (15:20)
[2021-08-16] MEDS: VENLAFAXINE HCL XR 75 MG CAPXR PO SCH (15:20)
--- NOTE | 2021-08-16 17:42 | Urology Consultation ---
Date of Consultation August 16, 2021 Assessment & Plan (1) Nephrolithiasis: Patient with 1.3 cm right UPJ stone with hydronephrosis and likely stranding. Patient is currently afebrile. Vitals are stable. Have spoken a number of times to the hospitalist team as well as coordinating care plan will be to have patient be n.p.o. at midnight. Discussed options for conservative measure and maximum expulsion medical therapy and symptom controlled. Discussed ESWL. Discussed Ureteroscopy with extraction and/or laser lithotripsy. Risks and benefits were discussed. Stone free rates were also discussed as well as possibility of multiple procedures. Ureteral stents were discussed as well as post-operative issues and pain management. All questions were answered. If patient is still dealing with issues may consider stent for stone treatment tomorrow. Patient's imaging was reviewed interpreted by myself. Reviewed patient's complicated medical and surgical history. Reviewed and summarized above. All labs reviewed. Awaiting cultures and will plan to continue with supportive care History of Present Illness Attending Physician: Carlos Brooks, DO History of Present Illness New consultation for patient with stone, discomfort, obstruction, and ill feelings. Patient developed sudden onset of pain into flank going down and rad iating into groin and back in waves comes and goes. Can be severe at times. Discussed and reviewed patient's family history for any history of stone disease. No family history of malignancy. No family history of stones in the kidneys. Also, discussed patient's medical surgery history especially related to any history of urinary issues or stone disease. Patient was admitted and is undergoing observation. Patient is tolerating hydration. Is tolerating diet. Stone has been bothersome. Allergies Allergy/AdvReac Type Severity Reaction Status Date / Time egg Allergy Severe throat Verified 05/12/21 15:22 swells Beef Containing Products Allergy Mild HIVES Verified 05/12/21 15:22 cinnamon Allergy Mild HIVES Verified 05/12/21 15:22 milk Allergy Mild HIVES - Verified 05/12/21 15:22 COWS MILK oats Allergy Mild HIVES Verified 05/12/21 15:22 orange Allergy Mild HIVES Verified 05/12/21 15:22 scallops Allergy Mild HIVES Verified 05/12/21 15:22 shellfish derived Allergy Mild HIVES Verified 05/12/21 15:22 wheat Allergy Mild HIVES Verified 05/12/21 15:22 TURKEY Allergy Mild HIVES Uncoded 05/12/21 15:22 Home Medications Medication Instructions Recorded Confirmed Type loratadine 10 mg tablet (Claritin) 10 mg PO QAM 07/23/19 08/16/21 History albuterol sulfate 90 mcg/actuation 2 puff INHALATION QID PRN #8.5 g 07/22/20 08/16/21 Rx aerosol inhaler (ProAir HFA) rizatriptan 10 mg disintegrating See Rx Instructions PO .COMPLEX 02/04/21 08/16/21 Rx tablet #12 tab topiramate 50 mg tablet 50 mg PO BID #60 tab 02/04/21 08/16/21 Rx polysaccharide iron complex 150 mg 150 mg PO DAILY #90 cap 04/13/21 08/16/21 Rx iron capsule (Ferrex) nystatin 100,000 unit/gram topical 1 applic TOPICAL DAILY #30 g 04/14/21 08/16/21 Rx powder amlodipine 5 mg tablet 5 mg PO DAILY #90 tab 05/26/21 08/16/21 Rx venlafaxine 150 mg 150 mg PO DAILY #30 cap 06/24/21 08/16/21 Rx capsule,extended release 24 hr venlafaxine 75 mg capsule,extended 75 mg PO DAILY #30 cap 06/24/21 08/16/21 Rx release 24 hr Patient History Surgical History H/O oral surgery H/O: hysterectomy Hx of tubal ligation Family History Grandfather (Maternal) Coronary heart disease Mother Depression Diabetes Hypertension Hypercholesteremia Grandmother (Maternal) Depression Sister Epilepsy Father Hypertension Denies family history of Ovarian cancer Breast cancer Colorectal cancer Social History Smoking Status: Never smoker Hx Alcohol Use: Yes Hx Substance Use: No Preferred Language: Armenian Communication Ability: Effective Senior Clerk Required: No Beliefs That Will Affect Care: None marital status: Current Living Situation: Spouse Feels Safe at Home: Yes caffeine: Yes Seatbelt Use: always Sunscreen Use: Yes Assistive Devices: None Review of Systems Review of Systems: All systems reviewed & are unremarkable except as noted in HPI & below Physical Exam Physical Exam: General: Alert and oriented x 3 in no acute distress. Patient is well nourished and well kept. HEENT: Normocephalic Atraumatic. Inspection normal. Cranial Nerves 2-12 Grossly intact. Nares are clear. Neck is supple. Normal inspection of face. Normal inspection of neck. Neurologic: No deficits on inspection. Baseline for motor function and sensory. Psychologic: Normal affect. Respiratory: Nonlabored. No use of accessory muscles. No tachypnea or dyspnea. Cardiovascular: No tachycardia Skin: [place] and Dry. No rashes or visible lesions. Extremities: Moving without issues. No motor deficits on inspection Lymphatics: No edema Abdomen: Soft Non-distended. No acites. No rebound or guarding. Results & Data ([facility]) Vital Signs (Past 12 Hours) Vital Signs Temp Pulse Resp BP Pulse Ox 08/16/21 15:12 37 C 72 16 134/80 92 08/16/21 13:00 36.7 C 89 18 163/91 H 98 08/16/21 12:00 75 18 128/78 98 08/16/21 09:49 70 18 118/76 95 08/16/21 06:49 65 14 110/73 93 PG Care Time/CCT Total # of Minutes Spent Total Time Spent with Patient: Total time spent is greater than 50% in coordination of care (as documented) at patient's floor/unit and/or counseling patient: Coding Level of Care Code 67891 Inpt Consult Level 4 Diagnoses Nephrolithiasis N20.0
[2021-08-16 20:49] LABS: Appearance Urine Clear (Clear); Bacteria Urine Automated 1+ (Negative); Bilirubin Urine Negative (Negative); Blood Urine 1+ (Negative); Color Urine Yellow; Epithelial Cell Urine Auto >30 /lpf (0-5); Glucose Urine UA Negative (Negative); Ketones Urine 1+ (Negative); Leukocyte Esterase Urine Negative (Negative); Nitrite Urine Negative (Negative); Protein Urine Negative (Negative); RBC Urine Automated 0-4 /hpf (0-4); Specific Gravity Urine 1.019 (1.000-1.030); Urobilinogen Urine Negative (Negative); pH Urine 7.5 (4.5-7.5)
--- NOTE | 2021-08-16 21:10 | Emergency Department Note ---
Impression & Plan Ureteropelvic junction (UPJ) obstruction, Hydronephrosis with renal and ureteral calculus obstruction ED Provider Note CHIEF COMPLAINT: Right flank pain, nausea HISTORY OF PRESENT ILLNESS: This 46-year-old female patient presents to the emergency department with complaints of right-sided flank pain and nausea. The patient states the pain came on all of a sudden. She has a remote history of kidney stones several years ago. She is not certain if this feels similar. The pain does shoot through from the abdomen to the back. She denies any radiation into the groin. She denies any blood in the urine or fevers. Patient denies any chance of . She denies any known Covid exposures REVIEW OF SYSTEMS: A review of systems was performed with positives and pertinent negatives listed in the history of present illness. 10 systems were reviewed and are otherwise negative. ALLERGIES: see below MEDICATIONS: see below PMH: see below SOCIAL HISTORY: see below DDx: Renal colic, UTI, appendicitis, diverticulitis, mesenteric ischemia, aortic pathology, infections, inflammatory bowel disease, PUD, biliary pathology, as well as other pathologies. PHYSICAL EXAM: Vital signs reviewed. General: Well-appearing 46-year-old female, in no significant distress. HEENT: No scleral icterus, PERRLA, neck supple. Atraumatic. Cardiovascular: Regular rate and rhythm, no extra sounds. Pulmonary: Clear to auscultation bilaterally, normal work of breathing. Abdomen: Soft, nontender, nondistended, positive bowel sounds. Musculoskeletal: Atraumatic, no peripheral edema. Positive right CVA tenderness Neurologic: Patient awake alert and oriented x 3 Skin: Warm, dry, no rash EMERGENCY DEPARTMENT COURSE/MDM: This patient was evaluated and appeared to be in no significant distress. IV access was obtained and laboratory work was drawn. Patient was placed on automotive wholesale parts advisor and noted to be in normal sinus rhythm. She was hydrated with normal saline solution, medicated with IV Dilaudid and Zofran. CT imaging of the abdomen pelvis was performed and reveals a large right calculus at the UPJ. MONITORING: An order for cardiac monitoring was placed and the patient is noted to be in a sinus tachycardia at 105 beats per minute. RADIOLOGY: see below DISPOSITION: Hospitalist evaluation for admission Past Med/Surg History Medical History Depression Essential hypertension Hyperlipidemia Impaired fasting glucose Iron deficiency anemia Low grade squamous intraepithelial lesion (LGSIL) on cervical Pap smear Obesity Surgical History H/O oral surgery H/O: hysterectomy Hx of tubal ligation Family History Grandfather (Maternal) Coronary heart disease Mother Depression Diabetes Hypertension Hypercholesteremia Grandmother (Maternal) Depression Sister Epilepsy Father Hypertension Denies family history of Ovarian cancer Breast cancer Colorectal cancer Social History Smoking Status: Never smoker Hx Alcohol Use: Yes Hx Substance Use: No Preferred Language: Uzbek Communication Ability: Effective Umbrella Mender Required: No Beliefs That Will Affect Care: None marital status: Current Living Situation: Spouse Feels Safe at Home: Yes caffeine: Yes Seatbelt Use: always Sunscreen Use: Yes Assistive Devices: None Allergies Allergies Allergy/AdvReac Type Severity Reaction Status Date / Time egg Allergy Severe throat Verified 05/12/21 15:22 swells Beef Containing Products Allergy Mild HIVES Verified 05/12/21 15:22 cinnamon Allergy Mild HIVES Verified 05/12/21 15:22 milk Allergy Mild HIVES - Verified 05/12/21 15:22 COWS MILK oats Allergy Mild HIVES Verified 05/12/21 15:22 orange Allergy Mild HIVES Verified 05/12/21 15:22 scallops Allergy Mild HIVES Verified 05/12/21 15:22 shellfish derived Allergy Mild HIVES Verified 05/12/21 15:22 wheat Allergy Mild HIVES Verified 05/12/21 15:22 TURKEY Allergy Mild HIVES Uncoded 05/12/21 15:22 Home Meds Home Medications Medication Instructions Recorded Confirmed loratadine 10 mg tablet (Claritin) 10 mg PO QAM 07/23/19 08/16/21 Previous Rx's Medication Instructions Recorded albuterol sulfate 90 mcg/actuation 2 puff INHALATION QID PRN #8.5 g 07/22/20 aerosol inhaler (ProAir HFA) rizatriptan 10 mg disintegrating See Rx Instructions PO .COMPLEX 02/04/21 tablet #12 tab topiramate 50 mg tablet 50 mg PO BID #60 tab 02/04/21 polysaccharide iron complex 150 mg 150 mg PO DAILY #90 cap 04/13/21 iron capsule (Ferrex) nystatin 100,000 unit/gram topical 1 applic TOPICAL DAILY #30 g 04/14/21 powder amlodipine 5 mg tablet 5 mg PO DAILY #90 tab 05/26/21 venlafaxine 150 mg 150 mg PO DAILY #30 cap 06/24/21 capsule,extended release 24 hr venlafaxine 75 mg capsule,extended 75 mg PO DAILY #30 cap 06/24/21 release 24 hr oxycodone 5 mg capsule 5 - 10 mg PO DAILY #10 cap 08/18/21 tamsulosin 0.4 mg capsule 0.4 mg PO QAM #30 cap 08/18/21 Results & Data (ED) Vital Signs Vital Signs - 24 hr 08/16/21 04:56 08/16/21 06:49 Temperature 36.6 C Temperature Source Temporal Artery Scan Pulse Rate 85 Pulse Rate [Finger] 65 Pulse Rhythm Regular Pulse Strength Normal Respiratory Rate 20 14 Respiratory Effort / Characteristics Non-Labored Spontaneous Respiratory Depth Normal Blood Pressure 148/92 H Blood Pressure [Right Arm] 110/73 Blood Pressure Mean 110 Blood Pressure Mean [Right Arm] 85 Blood Pressure Position Sitting Pulse Oximetry 95 93 Oxygen Delivery Method Room Air Sepsis Recent Fever Within 48 Hours No Sepsis New/Unexplained Change in Mental Status N/A Sepsis Action Taken by Nursing No Action Required Home Medications Current Medication List: was personally reviewed by me Laboratory Data Attestation: I reviewed the patient's lab results. Result diagrams: 08/18/21 10:53 08/18/21 10:53 Lab Results 08/16/21 08/16/21 08/16/21 Range/Units 05:55 05:55 07:45 WBC 13.04 H (4.8-10.8) K/uL RBC 4.91 (4.2-5.4) M/uL Hgb 14.7 (12.0-16.0) g/dL Hct 44.6 (37-47) % MCV 90.8 (80-100) fL MCH 29.9 (25-34) pg MCHC 33.0 (32-36) g/dL RDW Std Deviation 44.6 (36.4-46.3) fL RDW Coeff of [place] 13.6 (11.5-14.5) % Plt Count 324 (130-400) K/uL MPV 10.2 (7.4-10.4) fL Immature Gran % (Auto) 0.5 % Neut % (Auto) 75.6 % Lymph % (Auto) 16.3 % [place] % (Auto) 6.6 % Eos % (Auto) 0.8 % Baso % (Auto) 0.2 % Neut # (Auto) 9.85 H (1.4-6.5) K/uL Lymph # (Auto) 2.13 (1.2-3.4) K/uL [place] # (Auto) 0.86 H (0.11-0.59) K/uL Eos # (Auto) 0.10 (0-0.5) K/uL Baso # (Auto) 0.03 (0-0.2) K/uL Immature Gran # (Auto) 0.07 H (0.00-0.02) K/uL Sodium 140 (136-145) mmol/L Potassium 3.6 (3.5-5.1) mmol/L Chloride 108 H (98-107) mmol/L Carbon Dioxide 27 (21-32) mmol/L Anion Gap 5.0 (3-11) BUN 13 (7-18) mg/dl Creatinine 0.99 (0.6-1.2) mg/dl Est Cr Clr Drug Dosing 81.6 ml/min Est GFR ( Amer) 79.2 ml/min Est GFR (Non-Af Amer) 68.3 ml/min BUN/Creatinine Ratio 13.5 (10-20) Glucose 165 H (70-99) mg/dl Calcium 9.3 (8.5-10.1) mg/dl Total Bilirubin 0.2 (0.2-1) mg/dl AST 18 (15-37) U/L ALT 32 (12-78) U/L Alkaline Phosphatase 76 (45-117) U/L Total Protein 7.3 (6.4-8.2) gm/dl Albumin 3.5 (3.4-5.0) gm/dl Globulin 3.8 (2.5-4.0) gm/dl Albumin/Globulin Ratio 0.9 (0.9-2) Urine Color Yellow Urine Appearance Cloudy A (Clear) Urine pH 7.5 (4.5-7.5) Ur Specific [place] 1.011 (1.000-1.030) Urine Protein Negative (Negative) Urine Glucose (UA) Negative (Negative) Urine Ketones Negative (Negative) Urine Blood Trace H (Negative) Urine Nitrite Negative (Negative) Urine Bilirubin Negative (Negative) Urine Urobilinogen Negative (Negative) Ur Leukocyte Esterase Negative (Negative) Urine WBC (Auto) 1-5 (0-5) /hpf Urine RBC (Auto) 0-4 (0-4) /hpf U Hyaline Cast (Auto) 0 (0-5) /lpf U Epithel Cells (Auto) 10-20 H (0-5) /lpf Urine Bacteria (Auto) 1+ H (Negative) Administered Medications Discontinued Medications Amlodipine Besylate (Amlodipine Besylate 5 Mg Tab) 5 mg PO DAILY JALYYN Stop: 09/15/21 08:59 Last Admin: 08/18/21 08:17 Dose: 5 mg Documented by: [id number] Admin: 08/17/21 08:42 Dose: 5 mg Documented by: [id number] Admin: 08/16/21 15:19 Dose: 5 mg Documented by: [id number] Hydromorphone HCl (Hydromorphone Inj 0.5 Mg/0.5 Ml Syr) 0.5 mg IV NOW STA Stop: 08/16/21 05:31 Last Admin: 08/16/21 06:01 Dose: 0.5 mg Documented by: [id number] Hydromorphone HCl (Hydromorphone Inj 0.5 Mg/0.5 Ml Syr) 0.5 mg IV NOW STA Stop: 08/16/21 06:26 Last Admin: 08/16/21 06:46 Dose: 0.5 mg Documented by: [id number] Hydromorphone HCl (Hydromorphone Inj 0.5 Mg/0.5 Ml Syr) 0.5 mg IV Q6H PRN PRN Reason: Pain Stop: 08/30/21 08:47 Last Admin: 08/17/21 09:51 Dose: 0.5 mg Documented by: [id number] Admin: 08/17/21 03:18 Dose: 0.5 mg Documented by: [id number] Admin: 08/16/21 20:32 Dose: 0.5 mg Documented by: [id number] Admin: 08/16/21 14:33 Dose: 0.5 mg Documented by: [id number] Admin: 08/16/21 09:21 Dose: 0.5 mg Documented by: [id number] Sodium Chloride (Nss 1000ml) 1,000 mls @ 999 mls/hr IV .Q1H1M ONE Stop: 08/16/21 06:30 Last Infusion: 08/16/21 07:30 Dose: 0 mls/hr Documented by: [id number] Admin: 08/16/21 06:01 Dose: 999 mls/hr Documented by: [id number] Sodium Chloride (Nss 1000ml) 1,000 mls @ 100 mls/hr IV .Q10H JAYLYN Stop: 09/15/21 08:47 Last Admin: 08/18/21 10:54 Dose: Not Given Documented by: [id number] Infusion: 08/18/21 10:21 Dose: 0 mls/hr Documented by: [id number] Admin: 08/18/21 00:21 Dose: 100 mls/hr Documented by: [id number] Infusion: 08/17/21 18:40 Dose: 0 mls/hr Documented by: [id number] Admin: 08/17/21 08:40 Dose: 100 mls/hr Documented by: [id number] Infusion: 08/17/21 08:34 Dose: 0 mls/hr Documented by: [id number] Admin: 08/16/21 22:33 Dose: 100 mls/hr Documented by: [id number] Infusion: 08/16/21 22:33 Dose: 100 mls/hr Documented by: [id number] Admin: 08/16/21 13:04 Dose: 100 mls/hr Documented by: [id number] Infusion: 08/16/21 13:04 Dose: 100 mls/hr Documented by: [id number] Admin: 08/16/21 09:30 Dose: 100 mls/hr Documented by: [id number] Ciprofloxacin (Cipro / D5w) 400 mg in 200 mls @ 100 mls/hr IV Q12H JAYLYN; Protocol Stop: 08/21/21 08:47 Last Infusion: 08/18/21 10:15 Dose: 0 mls/hr Documented by: [id number] Admin: 08/18/21 08:15 Dose: 100 mls/hr Documented by: [id number] Infusion: 08/18/21 00:13 Dose: 0 mls/hr Documented by: [id number] Admin: 08/17/21 21:29 Dose: 100 mls/hr Documented by: [id number] Infusion: 08/17/21 10:40 Dose: 0 mls/hr Documented by: [id number] Admin: 08/17/21 08:40 Dose: 100 mls/hr Documented by: [id number] Infusion: 08/16/21 22:29 Dose: 0 mls/hr Documented by: [id number] Admin: 08/16/21 20:26 Dose: 100 mls/hr Documented by: [id number] Infusion: 08/16/21 12:26 Dose: 0 mls/hr Documented by: [id number] Admin: 08/16/21 09:21 Dose: 100 mls/hr Documented by: [id number] Potassium Chloride (K Sly / Wtr) 10 meq in 100 mls @ 100 mls/hr IV Q1H JAYLYN Stop: 08/17/21 12:29 Last Infusion: 08/17/21 12:43 Dose: 0 mls/hr Documented by: [id number] Admin: 08/17/21 11:43 Dose: 100 mls/hr Documented by: [id number] Infusion: 08/17/21 11:43 Dose: 100 mls/hr Documented by: [id number] Admin: 08/17/21 10:47 Dose: 100 mls/hr Documented by: [id number] Infusion: 08/17/21 10:47 Dose: 100 mls/hr Documented by: [id number] Admin: 08/17/21 09:52 Dose: 100 mls/hr Documented by: [id number] Ketorolac Tromethamine (Ketorolac 30 Mg/Ml Vial) 30 mg IV NOW ONE Stop: 08/17/21 17:50 Last Admin: 08/17/21 18:07 Dose: 30 mg Documented by: [id number] Ondansetron HCl (Ondansetron Inj 2 Mg/Ml 2 Ml Vial) 4 mg IV NOW STA Stop: 08/16/21 05:31 Last Admin: 08/16/21 06:01 Dose: 4 mg Documented by: [id number] Ondansetron HCl (Ondansetron Inj 2 Mg/Ml 2 Ml Vial) 4 mg IV Q6H PRN PRN Reason: Nausea Stop: 09/15/21 08:47 Last Admin: 08/17/21 03:19 Dose: 4 mg Documented by: [id number] Admin: 08/16/21 18:18 Dose: 4 mg Documented by: [id number] Admin: 08/16/21 09:22 Dose: 4 mg Documented by: [id number] Polysaccharide Iron Complex (Iron Polysaccharide Complex 150 Mg Capsule) 150 mg PO DAILY JAYLYN Stop: 09/15/21 08:59 Last Admin: 08/16/21 14:28 Dose: Not Given Documented by: [id number] Tamsulosin HCl (Tamsulosin Hcl 0.4 Mg Cap) 0.4 mg PO QAM JAYLYN Stop: 09/15/21 08:59 Last Admin: 08/18/21 08:15 Dose: 0.4 mg Documented by: [id number] Admin: 08/17/21 09:59 Dose: 0.4 mg Documented by: [id number] Admin: 08/16/21 15:20 Dose: 0.4 mg Documented by: [id number] Tamsulosin HCl (Tamsulosin Hcl 0.4 Mg Cap) 0.4 mg PO NOW ONE Stop: 08/17/21 18:16 Last Admin: 08/17/21 18:35 Dose: 0.4 mg Documented by: [id number] Topiramate (Topiramate 50 Mg Tab) 50 mg PO BID JAYLYN Stop: 09/15/21 08:59 Last Admin: 08/18/21 08:15 Dose: 50 mg Documented by: [id number] Admin: 08/17/21 20:27 Dose: 50 mg Documented by: [id number] Admin: 08/17/21 08:42 Dose: 50 mg Documented by: [id number] Admin: 08/16/21 19:34 Dose: 50 mg Documented by: [id number] Admin: 08/16/21 15:19 Dose: 50 mg Documented by: [id number] Venlafaxine HCl (Venlafaxine Hcl Xr 75 Mg Capxr) 75 mg PO DAILY JAYLYN Stop: 09/15/21 08:59 Last Admin: 08/18/21 08:16 Dose: 75 mg Documented by: [id number] Admin: 08/17/21 08:42 Dose: 75 mg Documented by: [id number] Admin: 08/16/21 15:20 Dose: 75 mg Documented by: [id number] Venlafaxine HCl (Venlafaxine Hcl Xr 150 Mg Capxr) 150 mg PO DAILY JAYLYN Stop: 09/15/21 08:59 Last Admin: 08/18/21 08:17 Dose: 150 mg Documented by: [id number] Admin: 08/17/21 08:42 Dose: 150 mg Documented by: [id number] Admin: 08/16/21 15:20 Dose: 150 mg Documented by: [id number] Imaging Data Radiologist's Impression: Abdomen/Pelvis CT 08/16/21 05:30 CT OF THE ABDOMEN AND PELVIS WITHOUT CONTRAST CLINICAL HISTORY: Right flank pain. COMPARISON STUDY: No previous studies for comparison. TECHNIQUE: Axial images of the abdomen and pelvis were obtained without IV contrast. Images were reviewed in the axial, sagittal, and coronal planes. Automated exposure control was utilized for the study. A dose lowering techn ique was utilized adhering to the principles of ALARA. FINDINGS: Lung bases are unremarkable. A 1.3 cm right ureteropelvic junction calculus results in moderate right hydronephrosis. There is a 3 mm right renal calculus. There is moderate perinephric and periureteral stranding. There are no left-sided urinary calculi. Evaluation of the remainder of the abdomen and pelvis is suboptimal on this unenhanced exam. Hepatic steatosis is present. The spleen, adrenal glands and pancreas are unremarkable. There is no evidence for a bowel obstruction. Small fat-containing periumbilical hernia is present. The appendix is normal. No lymphadenopathy is present. No ascites. No acute fracture or suspicious lesion is identified within the visualized skeletal structures. IMPRESSION: 1. 1.3 cm right ureteropelvic junction calculus which results in moderate right hydronephrosis. 2. 3 mm right renal calculus. ACT 112: Negative or not required by law. Electronically signed by: Sammy Tesfaye M.D. 08/16/2021 7:40 AM Blood Pressure Blood Pressure Findings: Elevated blood pressure Blood Pressure Disposition: elevated BP felt to be situational Discharge Plan Visit Data Chief Complaint: Back Injury/Pain Stated Complaint: LOWER R. SIDE BACK PAIN, NAUSEA ED Provider: Lin Reyes Discharge Problem: Ureteropelvic junction (UPJ) obstruction, Hydronephrosis with renal and ureteral calculus obstruction Patient Disposition: Admitted As Inpatient Discharge Instructions Interventions: ED Discharge Assessment Last Done: 08/16/21 12:32
[2021-08-17] MEDS: HYDROmorphone INJ 0.5 MG/0.5 ML SYR IV PRN ×2 (03:18→09:51)
[2021-08-17] MEDS: ONDANSETRON INJ 2 MG/ML 2 ML VIAL IV PRN (03:19)
[2021-08-17 06:32] LABS: Basophils # (auto) 0.01 K/uL (0-0.2); Basophils % (auto) 0.1 %; Eosinophils # (auto) 0.05 K/uL (0-0.5); Eosinophils % (auto) 0.3 %; Hematocrit (blood only) 43.1 % (37-47); Immature Granulocytes # (auto) 0.05 K/uL (0.00-0.02); Immature Granulocytes % (auto) 0.3 %; Lymphocytes # (auto) 2.52 K/uL (1.2-3.4); Lymphocytes % (auto) 17.3 %; Mean Corpuscular Hemoglobin 29.7 pg (25-34); Mean Corpuscular Hgb Conc 32.5 g/dL (32-36); Mean Corpuscular Volume 91.5 fL (80-100); Mean Platelet Volume 10.1 fL (7.4-10.4); Monocytes # (auto) 1.78 K/uL (0.11-0.59); Monocytes % (auto) 12.2 %; Neutrophils # (auto) 10.19 K/uL (1.4-6.5); Neutrophils % (auto) 69.8 %; Platelet Count 355 K/uL (130-400); RDW Coefficient of Variation 13.8 % (11.5-14.5); RDW Standard Deviation 46.1 fL (36.4-46.3); Red Blood Count 4.71 M/uL (4.2-5.4)
[2021-08-17 07:12] LABS: BUN Creatinine Ratio 8.4 (10-20); Calcium 8.1 mg/dl (8.5-10.1); Creatinine Clr Calc Pharmacy 65.3 ml/min; Est GFR (African American) 64.7 ml/min; Est GFR (Non-African American) 55.8 ml/min; Magnesium 1.9 mg/dl (1.8-2.4); Potassium 3.4 mmol/L (3.5-5.1)
--- NOTE | 2021-08-17 07:27 | Urology Progress Note ---
Date of Service August 17, 2021 Assessment & Plan (1) Ureteropelvic junction (UPJ) obstruction: Plan: 46yo F admitted with intractable right flank pain and vomiting secondary to an obstructing 1.3cm right UPJ stone - Afebrile, VSS, non-toxic appearing. - Labs reviewed, Wbc 14.60 and creatinine 1.17 - UA on admission did not appear grossly infected, urine and blood cultures sent and pending - Findings reviewed with Dr. Mario. Given her intractable right flank pain in the context of an obstructing 1.3cm right UPJ stone, will proceed with OR for cysto, right retrograde pyelogram and right stent placement, possible ureteroscopy, laser lithotripsy, stone treatment depending on findings. - Risks and benefits discussed as per consent. Patient states understanding and agrees to proceed. - OR notified. On IV Ciprofloxacin. Covid test negative. - Keep NPO for procedure today - Expected clinical course reviewed with patient, all questions were answered. - Will continue to follow ATTENDING NOTE: Independently evaluated, examined, and assessed. Agree with above. Risks and benefits discussed at length for procedure. These include bleeding, infection, injury to surrounding tissues or organs, and risks associated with anesthesia. Patient states understanding and agrees to proceed. Will sign consent and schedule. Plan for cystoscopy with right ureteroscopy and stone treatment. Admission and Anticipated Discharge Date Admission Date: August 16, 2021 Subjective Pt examined at bedside this AM. Awake, resting in bed on arrival. Still with right flank pain, controlled with IV pain medication. No fevers or chills. Denies nausea or vomiting so far today. Denies hematuria and dysuria. Feels she is emptying her bladder well. Some urinary frequency. Has been NPO overnight. Review of Systems Constitutional: as per Subjective / HPI Cardiovascular: no chest pain and no dyspnea Gastrointestinal: as per Subjective / HPI Genitourinary: as per Subjective / HPI, + urinary frequency and + flank pain Physical Exam Constitutional: well developed and well nourished; no acute distress and not ill appearing Respiratory: normal respiratory effort and able to speak in complete sentences; no labored breathing and no audible wheezes Gastrointestinal (Abdomen): Inspection/Auscultation: abdomen normal to inspection; abdomen not distended Musculoskeletal: Head/Neck/Chest: normocephalic Skin: No visible rashes or lesions to exposed skin areas Neurologic: moves all extremities and awake Psychiatric: Orientation: alert, oriented x 3 and cooperative Results & Data ([facility]) Vital Signs (Past 12 Hours) Vital Signs Temp Pulse Resp BP Pulse Ox 08/16/21 22:37 36.7 C 85 16 139/83 95 PG Care Time/CCT Total # of Minutes Spent Total Time Spent with Patient: Total time spent is greater than 50% in physician support coordinator rdination of care (as documented) at patient's floor/unit and/or counseling patient: Coding Level of Care Code 98203 Subseq Hosp Care Lvl 2 Diagnoses Ureteropelvic junction (UPJ) obstruction N13.5
[2021-08-17] MEDS: SODIUM CHLORIDE 0.9% 1000ML 1,000 ML IV SCH (08:40)
[2021-08-17] MEDS: CIPROFLOXACIN / D5W 400 MG/200 ML BAG IV SCH ×2 (08:40→21:29)
[2021-08-17] MEDS: TOPIRAMATE 50 MG TAB PO SCH ×2 (08:42→20:27)
[2021-08-17] MEDS: amLODIPine BESYLATE 5 MG TAB PO SCH (08:42)
[2021-08-17] MEDS: VENLAFAXINE HCL XR 150 MG CAPXR PO SCH (08:42)
[2021-08-17] MEDS: VENLAFAXINE HCL XR 75 MG CAPXR PO SCH (08:42)
--- NOTE | 2021-08-17 09:01 | Hospitalist Progress Note ---
Date of Service August 17, 2021 Assessment & Plan (1) Ureteropelvic junction (UPJ) obstruction: Plan: -Secondary to nephrolithiasis with associated hydronephrosis and perinephric fat stranding -Patient taken for cystoscopy ureteral stent placement retrograde pyelogram and ureteral dilation 08/18/2021 -Continue IV hydration -Antiemetics as needed -Dilaudid for pain control -Flomax initiated -Empiric antibiotic therapy (Cipro); however, urinalysis does not appear to be grossly infected. Urine culture and blood cultures ordered (2) Nephrolithiasis: Plan: -See above (3) Leukocytosis: Plan: -Likely secondary to vomiting/reactive -Urinalysis does not appear to be grossly infected but urine culture orderedpending - (4) Essential hypertension: Plan: -Continue amlodipine (5) Gluten intolerance: Plan: -Diet controlled. (6) Hyperlipidemia: Plan: -Diet controlled (7) Iron deficiency anemia: Plan: -Hold iron for now as patient already nauseated. Okay to hold for a few days (8) Depression: Plan: -Continue Effexor Plan: -Lovenox for DVT prophylaxis - Admission and Anticipated Discharge Date Admission Date: August 16, 2021 Subjective Patient was seen preprocedure her pain was reasonably controlled. She is excited to have this taken care of family is at the bedside Review of Systems Review of Systems: Mild distress and fatigue no headache, no visual changes no speech or swallowing issues no chest pain, pressure or palpitations no shortness of breath, cough or wheezes Abdominal flank pain nausea and hematuria no focal joint pain or swelling no back pain, CVA tenderness or radicular pain no bruising, bleeding or rashes no focal signs of weakness or numbness or altered sensation no complaints of anxiety or depression.. Physical Exam Physical Exam: The patient appeared well nourished and normally developed. Vital signs as documented. Head exam is normocephalic atraumatic Neck is without JVD, thyromegaly, or carotid bruits. Lungs are clear to auscultation, no focal loss of breath sounds Cardiac exam, Rhythm is regular.. No murmurs, rubs or gallops. Abdominal exam reveals normal bowel sounds, soft non minor central and CVA angle tenderness Extremities are nonedematous and both pedal pulses are present Neurologic exam is alert and oriented, no focal loss of strength or sensation Skin is without bruises or rashes Psychologically is without concerns for anxiety or depression Results & Data Results & Data ([facility]) Vital Signs (Past 12 Hours) Vital Signs Temp Pulse Resp BP Pulse Ox 08/17/21 07:32 98.1 F 91 H 18 143/77 H 93 08/16/21 22:37 98.1 F 85 16 139/83 95 PG Care Time/CCT Total # of Minutes Spent Total Time Spent with Patient: Total time spent is greater than 50% in coordination of care (as documented) at patient's floor/unit and/or counseling patient: Coding Level of Care Code 48063 Subseq Hosp Care Lvl 2 Diagnoses Ureteropelvic junction (UPJ) obstruction N13.5 Nephrolithiasis N20.0 Leukocytosis D72.829 Essential hypertension I10 Gluten intolerance K90.41 Hyperlipidemia E78.5 Iron deficiency anemia D50.9 Depression F32.9
[2021-08-17] MEDS ORDERED: POTASSIUM CHLORIDE 10 MEQ / 100ML WTR IV STA (09:09)
[2021-08-17] MEDS: POTASSIUM CHLORIDE / WTR 10 MEQ/100 ML PLCT IV SCH ×3 (09:52→11:43)
[2021-08-17] MEDS: TAMSULOSIN HCL 0.4 MG CAP PO SCH (09:59)
[2021-08-17] MEDS ORDERED: ePHEDrine sulfate 50 MG/ML AMP IV PRN (11:47)
[2021-08-17] MEDS ORDERED: ATROPINE SULFATE 0.1 MG/ML 10ML SYR IV PRN (11:47)
[2021-08-17] MEDS ORDERED: ONDANSETRON INJ 2 MG/ML 2 ML VIAL IV PRN (11:47)
[2021-08-17] MEDS ORDERED: PHENYLEPHRINE 100MCG/ML 5ML SYR IV PRN (11:47)
[2021-08-17] MEDS ORDERED: LABETALOL HCL IV 5 MG/ML 20ML IV PRN (11:47)
[2021-08-17] MEDS ORDERED: HYDROmorphone INJ 1 MG/ML SYRINGE IV PRN ×3 (11:47→18:35)
[2021-08-17] MEDS ORDERED: fentaNYL citrate 100 MCG/2 ML VIAL IV PRN (11:47)
[2021-08-17] MEDS ORDERED: LIDOCAINE 2% 2 ML VIAL/AMP(20MG/ML) INFIL ONE (13:10)
[2021-08-17] MEDS ORDERED: MIDAZOLAM HCL 1 MG/ML 2ML VIAL ONE (13:10)
[2021-08-17] MEDS ORDERED: DEXAMETHASONE SOD INJ 4 MG/ML VIAL ONE (13:10)
[2021-08-17] MEDS ORDERED: fentaNYL citrate 100 MCG/2 ML VIAL ONE (13:10)
[2021-08-17] MEDS ORDERED: PROPOFOL IV EMULSION 10 MG/ML 20 ML VIAL IV ONE (13:10)
[2021-08-17] MEDS ORDERED: ONDANSETRON INJ 2 MG/ML 2 ML VIAL ONE (13:10)
--- NOTE | 2021-08-17 13:11 | Anesthesiology Consultation ---
Date of Service August 17, 2021 Assessment & Plan (1) Encounter for pre-operative examination: Chart Review Chart Review: Acceptable Risk for Surgery and Patient NOT seen in Pre Admission Testing Consults Requested none History Surgery Operation Date: 08/17/21 12:00 Proposed Procedures p Cytstoscopy, Right Ureteroscopy, Retrograde Pyelogram, Laser Lithotripsy, Stent Placement - Vinny Mario, DO Height/Weight Height: 5 ft 2 in Weight: 97.08 kg Allergies Allergy/AdvReac Type Severity Reaction Status Date / Time egg Allergy Severe throat Verified 05/12/21 15:22 swells Beef Containing Products Allergy Mild HIVES Verified 05/12/21 15:22 cinnamon Allergy Mild HIVES Verified 05/12/21 15:22 milk Allergy Mild HIVES - Verified 05/12/21 15:22 COWS MILK oats Allergy Mild HIVES Verified 05/12/21 15:22 orange Allergy Mild HIVES Verified 05/12/21 15:22 scallops Allergy Mild HIVES Verified 05/12/21 15:22 shellfish derived Allergy Mild HIVES Verified 05/12/21 15:22 wheat Allergy Mild HIVES Verified 05/12/21 15:22 TURKEY Allergy Mild HIVES Uncoded 05/12/21 15:22 Medications Home Medications Medication Instructions Recorded Confirmed Last Taken loratadine 10 mg tablet (Claritin) 10 mg PO QAM 07/23/19 08/16/21 08/15/21 albuterol sulfate 90 mcg/actuation 2 puff INHALATION QID PRN #8.5 g 07/22/20 08/16/21 Unknown aerosol inhaler (ProAir HFA) rizatriptan 10 mg disintegrating See Rx Instructions PO .COMPLEX 02/04/21 08/16/21 08/16/21 02:00 tablet #12 tab topiramate 50 mg tablet 50 mg PO BID #60 tab 02/04/21 08/16/21 08/15/21 polysaccharide iron complex 150 mg 150 mg PO DAILY #90 cap 04/13/21 08/16/21 08/15/21 iron capsule (Ferrex) nystatin 100,000 unit/gram topical 1 applic TOPICAL DAILY #30 g 04/14/21 08/16/21 Unknown powder amlodipine 5 mg tablet 5 mg PO DAILY #90 tab 05/26/21 08/16/21 08/15/21 venlafaxine 150 mg 150 mg PO DAILY #30 cap 06/24/21 08/16/21 08/15/21 capsule,extended release 24 hr venlafaxine 75 mg capsule,extended 75 mg PO DAILY #30 cap 06/24/21 08/16/21 08/15/21 release 24 hr Active Medications Generic Name Dose Route Start Last Admin Trade Name Freq PRN Reason Stop Dose Admin Amlodipine Besylate 5 mg 08/16/21 09:00 08/17/21 08:42 Amlodipine Besylate 5 Mg Tab PO 09/15/21 08:59 5 mg DAILY JAYLYN Administration Hydromorphone HCl 0.5 mg 08/16/21 08:48 08/17/21 09:51 Hydromorphone Inj 0.5 Mg/0.5 Ml Syr IV 08/30/21 08:47 0.5 mg Q6H PRN Administration Pain Sodium Chloride 1,000 mls @ 100 mls/hr 08/16/21 08:48 08/17/21 08:40 Nss 1000ml IV 09/15/21 08:47 100 mls/hr .Q10H JAYLYN Administration Ciprofloxacin 400 mg in 200 mls @ 100 mls/hr 08/16/21 08:48 08/17/21 10:40 Cipro / D5w IV 08/21/21 08:47 Infused Q12H JAYLYN Infusion Protocol Ondansetron HCl 4 mg 08/16/21 08:48 08/17/21 03:19 Ondansetron Inj 2 Mg/Ml 2 Ml Vial IV 09/15/21 08:47 4 mg Q6H PRN Administration Nausea Tamsulosin HCl 0.4 mg 08/16/21 09:00 08/17/21 09:59 Tamsulosin Hcl 0.4 Mg Cap PO 09/15/21 08:59 0.4 mg QAM JAYLYN Administration Topiramate 50 mg 08/16/21 09:00 08/17/21 08:42 Topiramate 50 Mg Tab PO 09/15/21 08:59 50 mg BID JAYLNY Administration Venlafaxine HCl 75 mg 08/16/21 09:00 08/17/21 08:42 Venlafaxine Hcl Xr 75 Mg Capxr PO 09/15/21 08:59 75 mg DAILY JAYLYN Administration Venlafaxine HCl 150 mg 08/16/21 09:00 08/17/21 08:42 Venlafaxine Hcl Xr 150 Mg Capxr PO 09/15/21 08:59 150 mg DAILY JAYLYN Administration NPO Date Last Intake of Solids: 08/16/21 Last Intake of Solids Comment: 2 bites of cracker yesterday Past Medical History Medical History Depression Essential hypertension Hyperlipidemia Impaired fasting glucose Iron deficiency anemia Low grade squamous intraepithelial lesion (LGSIL) on cervical Pap smear Obesity Past Family History Family History Grandfather (Maternal) Coronary heart disease Mother Depression Diabetes Hypertension Hypercholesteremia Grandmother (Maternal) Depression Sister Epilepsy Father Hypertension Denies family history of Ovarian cancer Breast cancer Colorectal cancer Past Surgical History Surgical History H/O oral surgery H/O: hysterectomy Hx of tubal ligation Social History Smoking Status: Never smoker Hx Alcohol Use: Yes Hx Substance Use: No Physical Exam Vital Signs Last Vital Signs Temp 36.7 C 08/17/21 07:32 Pulse 91 H 08/17/21 07:32 Resp 18 08/17/21 07:32 BP 143/77 H 08/17/21 07:32 Pulse Ox 93 08/17/21 07:32 Testing Laboratory Results 08/17/21 05:51 08/17/21 05:51 Urine Color Yellow 08/16/21 20:34 Urine Appearance Clear (Clear) 08/16/21 20:34 Urine pH 7.5 (4.5-7.5) 08/16/21 20:34 Ur Specific Exmore 1.019 (1.000-1.030) 08/16/21 20:34 Urine Protein Negative (Negative) 08/16/21 20:34 Urine Glucose (UA) Negative (Negative) 08/16/21 20:34 Urine Ketones 1+ (Negative) H 08/16/21 20:34 Urine Nitrite Negative (Negative) 08/16/21 20:34 Ur Leukocyte Esterase Negative (Negative) 08/16/21 20:34 Urine WBC (Auto) 1-5 /hpf (0-5) 08/16/21 20:34 Urine RBC (Auto) 0-4 /hpf (0-4) 08/16/21 20:34 U Hyaline Cast (Auto) 1-5 /lpf (0-5) 08/16/21 20:34 U Epithel Cells (Auto) >30 /lpf (0-5) H 08/16/21 20:34 Urine Bacteria (Auto) 1+ (Negative) H 08/16/21 20:34 08/16/21 20:34 Urine Culture - Preliminary Urine,Clean Catch No growth - Less than 1,000 colonies/mL, Final report to follow. 08/16/21 07:45 Urine Culture - Preliminary Urine,Clean Catch Pin-point growth present, reincubating. Electrocardiogram Date: 08/17/21 Findings: + NSR @ (84) and + NSST changes
[2021-08-17] MEDS ORDERED: PHENYLEPHRINE 100MCG/ML 5ML SYR ONE (14:25)
--- NOTE | 2021-08-17 14:56 | Operative Report ---
PG Post Operative Report Pre & Post Diagnosis Operation Date: 08/17/21 12:00 Pre-Op Diagnosis: Obstructing Kidney Stone Post-Op Diagnosis: Obstructing Kidney Stone I identified the patient and participated in the time-out.: Yes Procedure Operation Date: 08/17/21 12:00 Actual Procedures p Cytstoscopy with Right Ureteroscopy, Retrograde Pyelogram, Laser Lithotripsy, Stone basket extraction, and Right Ureteral Stent Placement - Vinny Mario, Surgeon Vinny Mario, II, DO Zinc Plate Grainer None Estimated Blood Loss 1 Findings Consistent with Post-Op Diagnosis Stone destroyed to dust and small fragments and larger fragments removed. Specimens Stone Fragments Drains 6 Fr Multilength Anesthesia Type General Complications none Disposition Disposition: Recovery Room Indications Patient with bothersome stones. Risks and benefits discussed at length. Description of Procedure Patient was consented and brought back to the operating room. Patient was placed under anesthesia in the supine position and moved to the dorsal lithotomy position. Patient was prepped and draped in the regular sterile fashion. A time out was completed identifying the correct patient and procedure. A 30degree Cystoscope was placed into the bladder and the entire bladder was examined. The UO's were identified. The UO was cannulized with a catheter and a retrograde pyelogram was completed. A wire was then placed. A ureteral access sheath and second safety wire was placed. The flexible ureteroscope was taken into the ureter. The entire ureter and renal pelvis were examined. The stones were identified. A laser fiber was selected and the stones were pulverized to dust and small fragments. Larger fragments were grasped and removed and sent for analysis. The entire area was once again examined. No residual large fragments or areas of concern were noted. The scope was slowly removed with the wire left in place. Contrast was placed through the scope for a pyelogram to assist in stent placement. The entire ureter was examined as the scope was slowly removed. No obstructions or other areas of concern were noted. With the wire in place, a 6 Fr Double J stent was placed. It was confirmed with fluoroscopy. With the stent in place, the bladder was emptied. The scope was removed. The patient was cleaned, aroused from anesthesia, and transferred to the pacu in stable condition having tolerated the procedure well with no complications. I was present and participated in all aspects of the procedure. The patient will be monitored in the PACU until transferred. Patient had very large stone approx 1.5 cm in size. Plan to maintain stent for 2-3 weeks and remove after imaging in the office. I attest to the content of the Intraoperative Record and any orders documented therein. Any exceptions are noted below.
--- NOTE | 2021-08-17 15:12 | Fluoroscopy Report ---
FL retrograde includes kub CLINICAL HISTORY: RT STENT TECHNIQUE: 3 views were obtained with the C-arm in the OR with the above procedure. Total fluoroscopy time was 13.9 seconds. Total skin dose was 5.35 mGy. Comparison: None available at the time of this dictation. FINDINGS/IMPRESSION: Intraoperative images were obtained of right cystogram with nephroureteral stent placement. Please correlate with intraoperative fluoroscopy and operative report. ACT 112: Negative or not required by law. Electronically signed by: Carlos Ritter M.D. 08/17/2021 3:11 PM
--- NOTE | 2021-08-17 15:47 | Anesthesiology Progress Note ---
Date of Service August 17, 2021 Anesthesia Post Procedure Vital Signs Vital Signs: Temp Pulse Pulse Resp BP Pulse Ox 08/17/21 15:40 94 H 12 135/84 94 08/17/21 15:30 94 H 12 132/83 94 08/17/21 15:20 94 H 12 123/90 98 08/17/21 15:11 36.1 C L 102 H 16 130/85 98 08/17/21 13:15 37 C 91 H 20 133/90 93 08/17/21 07:32 36.7 C 91 H 18 143/77 H 93 08/16/21 22:37 36.7 C 85 16 139/83 95 Pain Intensity Right Flank: Pain Intensity: 2 Transfer of Care Handoff Completed per policy Notes Mental Status: alert / awake / arousable Patient Amnestic to Procedure: Yes Nausea / Vomiting: adequately controlled Pain: adequately controlled Airway Patency, RR, SpO2: stable & adequate BP & HR: stable & adequate Hydration State: stable & adequate Anesthetic Complications: no major complications apparent and Pt Satisfied with anesthetic care
[2021-08-17] MEDS ORDERED: KETOROLAC TROMETHAMINE 15 MG/ML VIAL IV PRN (17:49)
[2021-08-17] MEDS ORDERED: HYDROmorphone INJ 0.5 MG/0.5 ML SYR IV PRN ×2 (17:49→18:35)
[2021-08-17] MEDS ORDERED: KETOROLAC 30 MG/ML VIAL IV ONE (17:49)
[2021-08-17] MEDS ORDERED: TAMSULOSIN HCL 0.4 MG CAP PO ONE (18:15)
[2021-08-18] MEDS: SODIUM CHLORIDE 0.9% 1000ML 1,000 ML IV SCH ×2 (00:21→10:54)
--- NOTE | 2021-08-18 07:33 | Urology Progress Note ---
Date of Service August 18, 2021 Assessment & Plan (1) Ureteropelvic junction (UPJ) obstruction: Plan: 46yo F admitted with intractable right flank pain and vomiting secondary to an obstructing 1.3cm right UPJ stone - POD #1 s/p Cystoscopy with Right Ureteroscopy, Retrograde Pyelogram, Laser Lithotripsy, Stone basket extraction, and Right Ureteral Stent Placement with Dr. Mario. - Feeling well today, tolerating the ureteral stent with minimal bother. - Afebrile, VSS, non-toxic appearing. - Labs reviewed, Wbc 12.28 today and creatinine 1.16. - Urine and blood cultures preliminary no growth, continues on IV Ciprofloxacin. - OK for discharge from perspective. - Recommend home with tamsulosin, prn analgesics, prn pyridium, and antibiotics if indicated per final culture results. - Will arrange outpatient follow-up for continued care and stent removal. - Expected clinical course reviewed with patient, all questions were answered. - Thank you for allowing us to participate in the acute care of Ms. Weathers. Please reconsult us with additional questions, concerns or changes in patient status. Admission and Anticipated Discharge Date Admission Date: August 16, 2021 Subjective Pt examined at bedside this AM. Awake, resting in bed on arrival. She denies any pain or discomfort at present. States she is feeling much better today. Reports some hematuria as expected. No dysuria. Feels she is emptying her bladder well. Did have some urge/freq yesterday after the procedure, but this has improved. No fevers or chills. Denies nausea or vomiting. Review of Systems Constitutional: as per Subjective / HPI Gastrointestinal: as per Subjective / HPI Genitourinary: as per Subjective / HPI Physical Exam Constitutional: well developed and well nourished; no acute distress and not ill appearing Respiratory: normal respiratory effort and able to speak in complete sentences; no labored breathing and no audible wheezes Gastrointestinal (Abdomen): Inspection/Auscultation: abdomen normal to inspection; abdomen not distended Musculoskeletal: Head/Neck/Chest: normocephalic Skin: No visible rashes or lesions to exposed skin areas Neurologic: moves all extremities and awake Psychiatric: Orientation: alert, oriented x 3 and cooperative Results & Data ([facility]) Vital Signs (Past 12 Hours) Vital Signs Temp Pulse Resp BP Pulse Ox 08/18/21 04:17 36.4 C L 90 16 111/71 96 08/17/21 22:55 36.7 C 107 H 20 107/72 94 PG Care Time/CCT Total # of Minutes Spent Total Time Spent with Patient: Total time spent is greater than 50% in coordination of care (as documented) at patient's floor/unit and/or counseling patient: Coding Level of Care Code 49853 Subseq Hosp Care Lvl 2 Diagnoses Ureteropelvic junction (UPJ) obstruction N13.5
[2021-08-18] MEDS: CIPROFLOXACIN / D5W 400 MG/200 ML BAG IV SCH (08:15)
[2021-08-18] MEDS: TAMSULOSIN HCL 0.4 MG CAP PO SCH (08:15)
[2021-08-18] MEDS: TOPIRAMATE 50 MG TAB PO SCH (08:15)
[2021-08-18] MEDS: VENLAFAXINE HCL XR 75 MG CAPXR PO SCH (08:16)
[2021-08-18] MEDS: amLODIPine BESYLATE 5 MG TAB PO SCH (08:17)
[2021-08-18] MEDS: VENLAFAXINE HCL XR 150 MG CAPXR PO SCH (08:17)
[2021-08-18 11:09] LABS: Basophils # (auto) 0.01 K/uL (0-0.2); Basophils % (auto) 0.1 %; Eosinophils # (auto) 0.01 K/uL (0-0.5); Eosinophils % (auto) 0.1 %; Hematocrit (blood only) 41.5 % (37-47); Hemoglobin 13.8 g/dL (12.0-16.0); Immature Granulocytes # (auto) 0.06 K/uL (0.00-0.02); Immature Granulocytes % (auto) 0.5 %; Lymphocytes # (auto) 2.03 K/uL (1.2-3.4); Lymphocytes % (auto) 16.5 %; Mean Corpuscular Hemoglobin 30.1 pg (25-34); Mean Corpuscular Hgb Conc 33.3 g/dL (32-36); Mean Corpuscular Volume 90.6 fL (80-100); Mean Platelet Volume 9.6 fL (7.4-10.4); Monocytes # (auto) 1.19 K/uL (0.11-0.59); Monocytes % (auto) 9.7 %; Neutrophils # (auto) 8.98 K/uL (1.4-6.5); Neutrophils % (auto) 73.1 %; Platelet Count 354 K/uL (130-400); RDW Coefficient of Variation 13.9 % (11.5-14.5); RDW Standard Deviation 45.9 fL (36.4-46.3); Red Blood Count 4.58 M/uL (4.2-5.4); White Blood Count 12.28 K/uL (4.8-10.8)
[2021-08-18 11:31] LABS: Calcium 8.6 mg/dl (8.5-10.1); Creatinine Clr Calc Pharmacy 65.9 ml/min; Est GFR (African American) 65.4 ml/min; Est GFR (Non-African American) 56.4 ml/min; Potassium 3.4 mmol/L (3.5-5.1)
--- NOTE | 2021-08-18 15:10 | Electrocardiogram Report ---
Test Reason : Blood Pressure : / mmHG Vent. Rate : 084 BPM Atrial Rate : 084 BPM P-R Int : 122 ms QRS Dur : 070 ms QT Int : 346 ms P-R-T Axes : 026 060 053 degrees QTc Int : 408 ms Normal sinus rhythm Low voltage QRS Nonspecific ST and T wave abnormality Abnormal ECG When compared with ECG of 01-NOV-2017 12:37, No significant change was found Confirmed by Lonnie Wilkerson ([id number]) on 08/18/2021 3:10:15 PM Referred By: REFERRED SELF Confirmed By:Lonnie Wilkerson
--- NOTE | 2021-08-18 16:07 | Discharge Summary ---
Date of Service August 18, 2021 Admission HPI Per Admitting Provider Mrs. Weathers is a 46-year-old white female with an underlying past medical history of depression, hypertension, ANTONIO, and multiple food allergies. She presented to the ED in the overnight hours complaining of right-sided flank pain and vomiting that occurred late last night. Was in her usual state of health until about 10 PM when she developed right-sided flank pain. Had a difficult time getting to sleep and eventually awoke around 2 AM this morning complaining of severe right-sided flank pain with violent vomiting. She presented to the ED where she was found to be hemodynamically stable and afebrile. Her white blood cell count was elevated at 13.04 but the rest of her lab data was unremarkable. Her urinalysis shows trace blood but no nitrites or leukocytes. CT of the abdomen and pelvis shows a 1.3 cm right ureteropelvic junction stone with associated hydronephrosis and perinephritic fat stranding. She was medicated with Dilaudid and Zofran and will be hospitalized for further evaluation and car e. Principal Diagnosis 1.3 cm right ureteral stone status post laser lithotripsy and right ureteral stent placement on 08/17/2021 Discharge Exam The patient appeared well Vital signs as documented. Lungs are clear to auscultation and appear unlabored Cardiac exam, Rhythm is regular.. No murmurs, rubs or gallops. Abdominal exam reveals normal bowel sounds, soft non tender, no masses Extremities are nonedematous and both pedal pulses are normal. Neurologic exam is alert and oriented, no focal loss of strength or sensation Skin is without bruises or rashes Psychologically is without concerns for anxiety or depression. Discharge Data Consultations 08/16/21 13:00 Consult Urology Routine Procedures Performed Operation Date: 08/17/21 12:00 Actual Procedures p Laser Lithotripsy, - DO braxton Bean Right Ureteral Stent Placement(Right) - DO braxton Bean Cytstoscopy, Right Ureteroscopy, Retrograde Pyelogram with Ureteral Dilation - Vinny Mario DO Ordered Studies 08/16/21 05:30 CT abd pelvis wo con Urgent 08/17/21 13:00 FL retrograde includes kub Routine Hospital Course (1) Ureteropelvic junction (UPJ) obstruction: -Secondary to nephrolithiasis with associated hydronephrosis and perinephric fat stranding -Patient taken for cystoscopy ureteral stent placement retrograde pyelogram and ureteral dilation 08/18/2021 -Patient is doing well post procedure she will be discharged home with Flomax initiated and a small amount of oxycodone -Empiric antibiotic therapy (Cipro); however, urinalysis does not appear to be grossly infected. Will discharge on Cipro at this time no confirmed infection (2) Nephrolithiasis: -See above (3) Leukocytosis: -Likely secondary to vomiting/reactive -Urinalysis does not appear to be grossly infected but urine culture negative time of discharge appears to be a contaminated specimen (4) Essential hypertension: -Continue amlodipine (5) Gluten intolerance: -Diet controlled. (6) Hyperlipidemia: -Diet controlled (7) Iron deficiency anemia: Continue iron deficiency replacement at home (8) Depression: -Continue Effexor - Total Time Total Time Spent Total Time Spent (In Minutes): It required greater than 30 minutes to prepare this patient for discharge Discharge Plan Discharge Items Patient Disposition: Home - Self-Care Reason For Visit: OBSTRUCTING KIDNEY STONE Discharge Diagnosis: right kidney stone with basket abstraction Activity: Resume your previous activity Non-emergency contact: Primary Care Provider and Urologist Call non-emergency contact if: you have any medication questions, your symptoms worsen and you have a fever Follow-up/Referrals: Lamin Morin III, MD [Primary Care Provider] - 08/21/21 11:00 am (APPT WITH NIKOLE CORNELIUS PA-C) Vinny Mario DO [Physician] - 09/02/21 9:45 am Diet: Regular Addtl Attending Provider Instructions: please continue with good hydration to encourage good urine flow, follow up with urology for pain you may use ibuprofen sparingly and occasional oxycodone Pending Studies at Discharge: Yes Stand-Alone Forms: [employer], Opioid Pain Management, Smoking Cessation Medications and DC Order Prescriptions: New tamsulosin 0.4 mg Capsule 0.4 mg PO QAM Qty: 30 RF: 0 oxycodone 5 mg capsule 5 - 10 mg PO DAILY Qty: 10 RF: 0 Continued loratadine [Claritin] 10 mg tablet 10 mg PO QAM RF: 0 polysaccharide iron complex [Ferrex 150] 150 mg iron capsule 150 mg PO DAILY Qty: 90 RF: 3 nystatin 100,000 unit/gram powder 1 applic topical DAILY Qty: 30 RF: 3 amlodipine 5 mg tablet 5 mg PO DAILY Qty: 90 RF: 3 venlafaxine 150 mg capsule,extended release 24hr 150 mg PO DAILY Qty: 30 RF: 11 venlafaxine 75 mg capsule,extended release 24hr 75 mg PO DAILY Qty: 30 RF: 11 albuterol sulfate [ProAir HFA] 90 mcg/actuation HFA aerosol inhaler 2 puff inhalation QID PRN (Reason: shortness of breath) Qty: 8.5 RF: 2 topiramate 50 mg tablet 50 mg PO BID Qty: 60 RF: 5 rizatriptan 10 mg tablet,disintegrating See Rx Instructions PO .COMPLEX Qty: 12 RF: 5 Discharge Orders: Discharge Order (Routine); Ordered 08/18/21 Ordered By: Todd Patel/Other Patient Handouts: Shock Wave Lithotripsy, Having a Ureteral Stent Admission Data Admit Date/Time: 08/16/21 08:48 Attending Provider: Todd Blair Admit Provider: Carlos Brooks Primary Care Provider: Lamin Morin III Other Providers: Vinny Mario Other Interventions: Discharge Summary Assessment (RN) Last Done: 08/18/21 12:35 Coding Level of Care Code D/C DAY MANAGEMENT >30 MINS Diagnoses Ureteropelvic junction (UPJ) obstruction N13.5 Nephrolithiasis N20.0 Leukocytosis D72.829 Essential hypertension I10 Gluten intolerance K90.41 Hyperlipidemia E78.5 Iron deficiency anemia D50.9 Depression F32.9
[2021-08-20 23:31] LABS: Component 2 DNR; Source KIDNEY
== END 2021-08-18 13:31 | disposition home or self-care (01) | DRG 660 ==
LOC: ED 04:47 → SUATTDRO 08:48 → 3E 08:48

== ENCOUNTER 2025-06-19 03:45 | Observation (INO) ==
[2025-06-19 04:30] LABS: Hematocrit (blood only) 44.3 % (37.0-47.0); Hemoglobin 14.7 g/dl (12.0-16.0); Immature Granulocytes # (auto) 0.02 K/uL (0.01-0.20); Immature Granulocytes % (auto) 0.2 %; Mean Corpuscular Hemoglobin 30.2 pg (25.0-34.0); Mean Corpuscular Volume 91.0 fL (80.0-100.0); Platelet Count 317 K/uL (130-400); RDW Standard Deviation 42.1 fL (36.4-46.3); Red Blood Count 4.87 M/uL (4.20-5.40); White Blood Count 11.42 K/ul (4.8-10.8)
[2025-06-19] MEDS: OPTIRAY 320 125ml IV ONE ×2 (04:34→06:52)
[2025-06-19 04:48] LABS: Alanine Aminotransferase 11 U/L (7-52); Albumin Globulin Ratio 1.4 (0.9-2); Alkaline Phosphatase 56 U/L (34-104); Anion Gap 6 (3-11); Bilirubin,Total 0.3 mg/dl (0.2-1.0); Blood Urea Nitrogen 15 mg/dl (6-23); Calcium 9.4 mg/dl (8.6-10.3); Carbon Dioxide 31 mmol/L (21-32); Chloride 104 mmol/L (98-107); Creatinine Clr Calc Pharmacy 78.7 ml/min; Globulin 3.0 gm/dl (2.5-4.0); Glucose 115 mg/dl (70-99(Fasting)); Lipase 53 U/L (11-82); Potassium 3.8 mmol/L (3.5-5.1); Sodium 141 mmol/L (136-145); Total Protein 7.3 gm/dl (6.0-8.3)
--- NOTE | 2025-06-19 05:06 | CT Scan Report ---
EXAM: CT angio chest PE protocol CLINICAL HISTORY: atypical chest pain/right shoulder TECHNIQUE: Contiguous axial images were obtained from the neck base through the upper abdomen following intravenous administration of iodinated contrast material. Angiographic images were processed, 3D MIP images were acquired for interpretation. If IV contrast material had not been administered, the likelihood of detecting abnormalities relevant to the patient's condition would have been substantially decreased. Coronal and sagittal 3-D MIPs were likewise performed and indicated to increase the sensitivity of detectin diffuse clinically relevant pathology. CT scan was performed according to ALARA (as low as reasonable achievable). COMPARISON: None. FINDINGS: Diffuse smooth interlobular septal thickening are noted involving bilateral lungs - suggestive of pulmonary congestion Adequate contrast bolus without evidence of pulmonary embolism. The central airways are patent. The lungs are clear. No pleural effusion. The heart, aorta, and pulmonary arteries are of normal size and configuration. There are no appreciable coronary artery and aortic atherosclerotic calcifications. No pericardial effusion is identified. The thyroid is unremarkable. No mediastinal, hilar, or axillary lymphadenopathy is noted. No suspicious lytic or sclerotic osseous lesions are identified. IMPRESSION: No evidence of pulmonary embolism. Diffuse smooth interlobular septal thickening are noted involving bilateral lungs - suggestive of pulmonary congestion. Electronically signed by Gee Frias 06-19-2025 05:06 AM
--- NOTE | 2025-06-19 05:30 | CT Scan Report ---
EXAM: CT abd pelvis IV con only CLINICAL HISTORY: upper abd pain, r shoulder pain, n/v TECHNIQUE: Contiguous axial images were obtained from the level of the diaphragm to the pubic symphysis with intravenous contrast. Coronal and sagittal reconstructions were likewise performed and indicated to increase the sensitivity for detecting clinically relevant pathology. If IV contrast material had not been administered, the likelihood of detecting abnormalities relevant to the patient's condition would have been substantially decreased. CT scan was performed according to ALARA (as low as reasonable achievable). COMPARISON: May 14:30:00 [employer] FINDINGS: The visualized lung bases are clear. The liver is normal in size and attenuation. No focal liver lesions are seen. There is no intra or extrahepatic biliary ductal dilatation. Hepatic vasculature is patent. The gallbladder is grossly distended measuring about 10 x 4.5 cm - USG correlation is suggested.. The spleen, pancreas, and adrenal glands are unremarkable. The kidneys are normal in size and attenuation. There is no hydronephrosis or perinephric fat stranding. No renal calculi or renal masses are identified. The ureters are normal in caliber and no ureteral calculi are seen. The bladder is normal in contour. Pelvic viscera are unremarkable. No focal or diffuse bowel wall thickening or evidence of bowel obstruction is identified. The appendix is visualized in the right lower quadrant and appears within normal limits. Abdominal and pelvic vasculature is patent. No adenopathy or fluid collections are seen. No aggressive appearing osseous lesions are identified. Fat containing umbilical hernia. Multiple small uncomplicated sigmoid colonic diverticulosis. 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 IMPRESSION: Fat containing umbilical hernia.-stable. Multiple small uncomplicated sigmoid colonic diverticulosis.-stable. 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 However, no obvious bowel obstruction/ischemia-new finding. No other new interval abnormality since prior study. Electronically signed by Gee Frias 06-19-2025 05:30 AM
[2025-06-19 05:57] LABS: Appearance Urine Clear (Clear); Glucose Urine UA Negative (Negative)
[2025-06-19] MEDS: PROMETHAZINE 12.5 MG/50.5 ML BAG IV STA (06:01)
[2025-06-19] MEDS: MoRPHine SULFATE 4 MG/ML 1 ML CARP\\VIAL IV PRN (06:01)
[2025-06-19] MEDS: SODIUM CHLORIDE 0.9% 1,000 ML IV ONE (06:01)
--- NOTE | 2025-06-19 06:17 | Emergency Department Note ---
History of Present Illness General Chief complaint: Shortness of Breath/Dyspnea Stated complaint: SOB, RT BACK PAIN Time Seen by Provider: 06/19/25 03:54 History of Present Illness Maximum Pain Intensity: 10 This is a 50-year-old female presenting to the emergency department through triage for evaluation of chest discomfort, shoulder pain, nausea, and vomiting. Patient's symptoms began to worsen over the past few hours and she did take ibuprofen around 2 AM without relief. Patient then started with nausea and vomiting, and took 8 mg of Zofran at 3:30 AM. These also did not help her symptoms, and she elected to come to the ER for evaluation. Patient does not have any fevers or chills. She recently traveled to and from [facility] by car, greater than a 6-[address] each way. She rates her overall discomfort a 10/10. Pain is not improved or worsened with movement or palpation. Home Medications Medication Instructions Recorded Confirmed Type loratadine 10 mg tablet (Claritin) 10 mg PO QAM 07/23/19 06/19/25 History propranolol 120 mg capsule,24 120 mg PO DAILY #30 caps 10/29/24 06/19/25 Rx hr,extended release venlafaxine 150 mg 150 mg PO QAM #30 caps 12/03/24 06/19/25 Rx capsule,extended release 24 hr venlafaxine 75 mg capsule,extended 75 mg PO QAM #30 caps 12/03/24 06/19/25 Rx release 24 hr tirzepatide (weight loss) 12.5 12.5 mg (0.5 mL) subcut Q7D #6 mL 04/09/25 06/19/25 Rx mg/0.5 mL subcutaneous pen injector hydrochlorothiazide 25 mg tablet 25 mg PO QAM 06/19/25 06/19/25 History Allergies Allergy/AdvReac Type Severity Reaction Status Date / Time egg Allergy Severe _ Verified 06/19/25 08:16 Past Med/Surg History Problem List (Updated 06/19/25 @ 21:18 by Miller Holman PA-C) Nausea & vomiting (Acute) Abdominal pain (Acute) Obesity, Class II, BMI 35-39.9 Hypercalciuria Essential hypertension Hyperparathyroidism Colon cancer screening Vitamin D deficiency Encounter for pre-operative examination Menorrhagia Migraine headache (Acute) Gluten intolerance (Acute) ROSALIO II (cervical intraepithelial neoplasia II) (Acute) Nephrolithiasis Obesity Low grade squamous intraepithelial lesion (LGSIL) on cervical Pap smear (Acute) hyster to resolve Impaired fasting glucose (Chronic) Hyperlipidemia (Chronic) Depression (Acute) Medical History Migraine Kidney stones Iron deficiency anemia Surgical History History of esophagogastroduodenoscopy (EGD) History of lithotripsy Hx of tubal ligation H/O oral surgery tooth extractions H/O: hysterectomy Family History Grandfather (Maternal) Coronary heart disease Myocardial infarction Mother Diabetes Depression Hypercholesteremia Hypertension FH: colonic polyps Grandmother (Maternal) Depression Sister Epilepsy Father Hypertension FH: colonic polyps Denies family history of Ovarian cancer Prostate cancer Breast cancer Colorectal cancer Social History Smoking Status: Never smoker Second Hand Exposure: No; Do You Dip or Chew Tobacco: No; Hx Alcohol Use: Yes Alcohol type: beer and wine Hx Substance Use: No Preferred Language: Syrian Communication Ability: Effective Staff Radiographer Required: No Beliefs That Will Affect Care: None marital status: Current Living Situation: Spouse current occupational status: employed Feels Safe at Home: Yes Safety Concerns: Feels Safe At This Time Childhood Exposure to Second-Hand Smoke: Yes Diet: regular caffeine: Yes Dental Care, Regularly: Yes Physical Activity Frequency: 1-2 Times per Week Seatbelt Use: always Sunscreen Use: Yes Assistive Devices: Hospital Bed Review of Systems A total of 10 systems reviewed and were otherwise negative Physical Exam Vital Signs Vital Signs - 24 hr 06/19/25 03:51 06/19/25 04:05 06/19/25 04:08 Temperature 36.8 C Temperature Source Temporal Artery Scan Pulse Rate 77 90 Pulse Rate [Apical] Pulse Rate from SpO2 Sensor Pulse Rhythm Regular Pulse Rhythm [Apical] Pulse Strength Normal Respiratory Rate 20 Respiratory Effort / Characteristics Non-Labored Spontaneous Respiratory Depth Normal Respiratory Pattern Regular Blood Pressure 173/100 H Blood Pressure [Right Arm] Blood Pressure Mean 124 Blood Pressure Mean [Right Arm] Blood Pressure Position Sitting Pulse Oximetry 98 99 Oxygen Delivery Method Room Air Room Air Sepsis Recent Fever Within 48 Hours No Sepsis New/Unexplained Change in Mental Status No Sepsis Action Taken by Nursing No Action Required 06/19/25 04:09 06/19/25 07:14 06/19/25 08:00 Temperature Temperature Source Pulse Rate Pulse Rate [Apical] 75 Pulse Rate from SpO2 Sensor 77 Pulse Rhythm Pulse Rhythm [Apical] Regular Pulse Strength Respiratory Rate 14 Respiratory Effort / Characteristics Non-Labored Spontaneous Respiratory Depth Normal Respiratory Pattern Regular Blood Pressure 146/101 H Blood Pressure [Right Arm] 133/91 Blood Pressure Mean 127 Blood Pressure Mean [Right Arm] 105 Blood Pressure Position Pulse Oximetry 98 99 96 Oxygen Delivery Method Room Air Room Air Sepsis Recent Fever Within 48 Hours Sepsis New/Unexplained Change in Mental Status Sepsis Action Taken by Nursing 06/19/25 08:30 Temperature Temperature Source Pulse Rate Pulse Rate [Apical] Pulse Rate from SpO2 Sensor 84 Pulse Rhythm Pulse Rhythm [Apical] Pulse Strength Respiratory Rate 20 Respiratory Effort / Characteristics Respiratory Depth Respiratory Pattern Blood Pressure 149/119 H Blood Pressure [Right Arm] Blood Pressure Mean 129 Blood Pressure Mean [Right Arm] Blood Pressure Position Pulse Oximetry 94 Oxygen Delivery Method Sepsis Recent Fever Within 48 Hours Sepsis New/Unexplained Change in Mental Status Sepsis Action Taken by Nursing VITALS: Vitals are noted on the nurse's note and reviewed by myself. Vital signs stable. GENERAL: Well-developed, well-nourished, white female, who is moderately uncomfortable on arrival. HEAD: Normocephalic atraumatic. NECK: Supple without nuchal rigidity. No lymphadenopathy. No thyromegaly. Cervical spine is nontender. HEART: Regular rate and rhythm without murmurs gallops or rubs. LUNGS: Clear to auscultation bilaterally without wheezes, rales or rhonchi. No retractions or accessory muscle use. ABDOMEN: Positive normal bowel sounds x 4. Soft, nontender, without masses or organomegaly. No guarding or rebound tenderness. MUSCULOSKELETAL: No muscle atrophy, erythema, or edema noted. Full range of motion in all extremities. No tenderness to palpation. NEURO: Patient was alert and oriented to person place and time. CN II through XII grossly intact. Course Administered Medications Hydromorphone HCl (Hydromorphone Inj 1 Mg/Ml Syringe) 1 mg IV Q6H PRN PRN Reason: Severe Pain (Scale 7, 8, 9,10) Stop: 07/03/25 11:32 Last Admin: 06/19/25 18:19 Dose: 1 mg Documented By: Admin: 06/19/25 13:03 Dose: 1 mg Documented By: REENA Acetaminophen (Ofirmev) 1,000 mg in 100 mls @ 400 mls/hr IV Q8H PRN PRN Reason: Pain or Fever Stop: 06/22/25 11:32 Last Infusion: 06/19/25 17:30 Dose: Infused Documented By: ADEric Admin: 06/19/25 17:09 Dose: 400 mls/hr Documented By: CARSON Metronidazole (Flagyl) 500 mg in 100 mls @ 100 mls/hr IV Q8H JAYLYN; Protocol Stop: 06/29/25 16:59 Last Infusion: 06/19/25 18:13 Dose: Infused Documented By: Admin: 06/19/25 17:11 Dose: 100 mls/hr Documented By: CARSON Sodium Chloride (Nss) 1,000 mls @ 125 mls/hr IV .Q8H JAYLYN Stop: 06/22/25 11:32 Last Admin: 06/19/25 13:00 Dose: 125 mls/hr Documented By: REENA Discontinued Medications Sodium Chloride (Nss) 1,000 mls @ 999 mls/hr IV .Q1H1M ONE Stop: 06/19/25 06:34 Last Infusion: 06/19/25 09:49 Dose: Infused Documented By: Admin: 06/19/25 06:01 Dose: 999 mls/hr Documented By: AN Promethazine HCl (Phenergan) 12.5 mg in 50.5 mls @ 202 mls/hr IV NOW STA Stop: 06/19/25 05:48 Last Infusion: 06/19/25 07:00 Dose: Infused Documented By: Admin: 06/19/25 06:01 Dose: 202 mls/hr Documented By: AN Ceftriaxone Sodium (Rocephin) 2,000 mg in 50 mls @ 100 mls/hr IV NOW STA Stop: 06/19/25 09:32 Last Infusion: 06/19/25 12:55 Dose: Infused Documented By: Admin: 06/19/25 09:15 Dose: 100 mls/hr Documented By: SAFIA Metronidazole (Flagyl) 500 mg in 100 mls @ 100 mls/hr IV NOW STA; Protocol Stop: 06/19/25 10:02 Last Infusion: 06/19/25 12:56 Dose: Infused Documented By: Admin: 06/19/25 09:15 Dose: 100 mls/hr Documented By: SAFIA Ioversol (Optiray 320 125ml) 125 ml IV ONCE ONE Stop: 06/19/25 04:32 Last Admin: 06/19/25 04:34 Dose: 118 ml Documented By: SULAIMAN Ioversol (Optiray 320 125ml) 112 ml IV ONCE ONE Stop: 06/19/25 06:53 Last Admin: 06/19/25 06:52 Dose: 112 ml Documented By: AISSATOU Morphine Sulfate (Morphine Sulfate 4 Mg/Ml 1 Ml Carp\Vial) 4 mg IV Q30M PRN PRN Reason: Pain Stop: 07/03/25 05:34 Last Admin: 06/19/25 06:01 Dose: 4 mg Documented By: OLINDA Ondansetron HCl (Ondansetron Inj 2 Mg/Ml 2 Ml Vial) 4 mg IV NOW STA Stop: 06/19/25 08:46 Last Admin: 06/19/25 09:13 Dose: Not Given Documented By: SAFIA Ondansetron HCl (Ondansetron Inj 2 Mg/Ml 2 Ml Vial) Confirm Administered Dose 4 mg .ROUTE .STK-MED ONE Stop: 06/19/25 08:47 Last Admin: 06/19/25 08:48 Dose: 4 mg Documented By: HAMMAD Medical Decision Making Differential Diagnosis Differential diagnosis: Etiologies such as biliary colic, cholecystitis, hepatitis, pancreatitis, cardiac disease, pancreatitis, gastritis, peptic ulcer disease, appendicitis, cystitis, diverticulitis, mesenteric ischemia, inflammatory bowel disease, ileus, bowel obstruction, testicular/adnexal torsion, aortic pathology, shingles, as well as others were considered Laboratory Data 06/19/25 04:00 06/19/25 04:00 Lab Results 06/19/25 06/19/25 06/19/25 Range/Units 04:00 04:06 05:37 WBC 11.42 H (4.8-10.8) K/ul RBC 4.87 (4.20-5.40) M/uL Hgb 14.7 (12.0-16.0) g/dl POC Hgb 15.6 (12.0-16.0) g/dl Hct 44.3 (37.0-47.0) % POC Hct 46 (37-47) % MCV 91.0 (80.0-100.0) fL MCH 30.2 (25.0-34.0) pg MCHC 33.2 (32.0-36.0) g/dL RDW Std Deviation 42.1 (36.4-46.3) fL RDW Coeff of [place] 12.7 (11.5-14.5) % Plt Count 317 (130-400) K/uL MPV 10.1 (9.4-12.4) fL Immature Gran % (Auto) 0.2 % Neut % (Auto) 69.0 % Lymph % (Auto) 20.7 % [place] % (Auto) 8.0 % Eos % (Auto) 1.8 % Baso % (Auto) 0.3 % Neut # (Auto) 7.90 H (1.40-6.50) K/uL Lymph # (Auto) 2.36 (1.20-3.40) K/uL [place] # (Auto) 0.91 H (0.11-0.59) K/uL Eos # (Auto) 0.20 (0.00-0.50) K/uL Baso # (Auto) 0.03 (0.00-0.20) K/uL Immature Gran # (Auto) 0.02 (0.01-0.20) K/uL POC Sodium 142 (135-144) mmol/L Sodium 141 (136-145) mmol/L POC Potassium 3.9 (3.3-5.0) mmol/L Potassium 3.8 (3.5-5.1) mmol/L POC Chloride 104 (101-112) mmol/L Chloride 104 (98-107) mmol/L Carbon Dioxide 31 (21-32) mmol/L POC Total CO2 27 (24-31) mmol/L Anion Gap 6 (3-11) POC Anion Gap 16.0 (16-25) mmol/L POC BUN 15 (7-18) mg/dl BUN 15 (6-23) mg/dl Creatinine 0.82 (0.6-1.2) mg/dl POC Creatinine 0.8 (0.6-1.3) mg/dl Est Cr Clr Drug Dosing 78.7 ml/min eGFR 87.09 BUN/Creatinine Ratio 18.3 (10-20) Glucose 115 H (70-99(Fasting)) mg/dl POC Glucose (other) 119 H (70-99) mg/dl Lactate (0.4-2.0) mmol/L Calcium 9.4 (8.6-10.3) mg/dl POC Ioniz Calcium Brandt 1.20 (1.12-1.32) mmol/l Total Bilirubin 0.3 (0.2-1.0) mg/dl AST 16 (13-39) U/L ALT 11 (7-52) U/L Alkaline Phosphatase 56 (34-104) U/L Troponin I High Sens < 2.3 2.4 (0-14) pg/ml Total Protein 7.3 (6.0-8.3) gm/dl Albumin 4.3 (3.4-5.0) gm/dl Globulin 3.0 (2.5-4.0) gm/dl Albumin/Globulin Ratio 1.4 (0.9-2) Lipase 53 (11-82) U/L Urine Color Yellow Urine Appearance Clear (Clear) Urine pH 6.0 (4.5-7.5) Ur Specific [place] 1.015 (1.000-1.030) Urine Protein Negative (Negative) Urine Glucose (UA) Negative (Negative) Urine Ketones Negative (Negative) Urine Blood Negative (Negative) Urine Nitrite Negative (Negative) Urine Bilirubin Negative (Negative) Urine Urobilinogen Negative (Negative) Ur Leukocyte Esterase Negative (Negative) Urine Comment 06/19/25 06/19/25 Range/Units 06:31 08:50 WBC (4.8-10.8) K/ul RBC (4.20-5.40) M/uL Hgb (12.0-16.0) g/dl POC Hgb (12.0-16.0) g/dl Hct (37.0-47.0) % POC Hct (37-47) % MCV (80.0-100.0) fL MCH (25.0-34.0) pg MCHC (32.0-36.0) g/dL RDW Std Deviation (36.4-46.3) fL RDW Coeff of [place] (11.5-14.5) % Plt Count (130-400) K/uL MPV (9.4-12.4) fL Immature Gran % (Auto) % Neut % (Auto) % Lymph % (Auto) % [place] % (Auto) % Eos % (Auto) % Baso % (Auto) % Neut # (Auto) (1.40-6.50) K/uL Lymph # (Auto) (1.20-3.40) K/uL [place] # (Auto) (0.11-0.59) K/uL Eos # (Auto) (0.00-0.50) K/uL Baso # (Auto) (0.00-0.20) K/uL Immature Gran # (Auto) (0.01-0.20) K/uL POC Sodium (135-144) mmol/L Sodium (136-145) mmol/L POC Potassium (3.3-5.0) mmol/L Potassium (3.5-5.1) mmol/L POC Chloride (101-112) mmol/L Chloride (98-107) mmol/L Carbon Dioxide (21-32) mmol/L POC Total CO2 (24-31) mmol/L Anion Gap (3-11) POC Anion Gap (16-25) mmol/L POC BUN (7-18) mg/dl BUN (6-23) mg/dl Creatinine (0.6-1.2) mg/dl POC Creatinine (0.6-1.3) mg/dl Est Cr Clr Drug Dosing ml/min eGFR BUN/Creatinine Ratio (10-20) Glucose (70-99(Fasting)) mg/dl POC Glucose (other) (70-99) mg/dl Lactate 2.2 H* 1.3 (0.4-2.0) mmol/L Calcium (8.6-10.3) mg/dl POC Ioniz Calcium Brandt (1.12-1.32) mmol/l Total Bilirubin (0.2-1.0) mg/dl AST (13-39) U/L ALT (7-52) U/L Alkaline Phosphatase (34-104) U/L Troponin I High Sens (0-14) pg/ml Total Protein (6.0-8.3) gm/dl Albumin (3.4-5.0) gm/dl Globulin (2.5-4.0) gm/dl Albumin/Globulin Ratio (0.9-2) Lipase (11-82) U/L Urine Color Urine Appearance (Clear) Urine pH (4.5-7.5) Ur Specific [place] (1.000-1.030) Urine Protein (Negative) Urine Glucose (UA) (Negative) Urine Ketones (Negative) Urine Blood (Negative) Urine Nitrite (Negative) Urine Bilirubin (Negative) Urine Urobilinogen (Negative) Ur Leukocyte Esterase (Negative) Urine Comment Imaging Data Radiologist's Impression: Gallbladder Ultrasound 06/19/25 08:41 US gallbladder CLINICAL HISTORY: distended GB on CT,severe abd pain COMPARISON STUDY: CT scan earlier today FINDINGS: Pancreas is obscured. Liver is grossly unremarkable measuring 14 cm. There is normal direction of flow in the portal vein. There are multiple gallstones and gallbladder sludge. Gallbladder is distended. No gallbladder wall thickening. No pericholecystic fluid or ascites. Common bile duct measures normal diameter of 4 mm. Right kidney shows no hydronephrosis. IMPRESSION: Gallstones and gallbladder distention with no specific evidence of cholecystitis. ACT 112: Negative or not required by law. Electronically signed by: Niels Anderson M.D. 06/19/2025 10:10 AM MDM Narrative Physical exam and history were performed. Nursing notes, EMR, and Medication List were personally reviewed. No social concerns were identified as barriers to patients care. History was provided by the Patient and who is at bedside. Patient appears to have several symptoms bring her to the ER. She seems to have both chest/shoulder pain as well as upper abdominal pain with nausea and vomiting. IV access was established and labs were obtained. Patient was hydrated with normal saline. She was sent to CT scan for imaging of both her chest and abdomen and pelvis. An order was placed for continuous cardiac monitoring. The monitor shows a rate of 72 with normal sinus rhythm. Patient's blood work is as above and was reviewed. She does not have a significantly elevated white blood cell count, gross anemia, bandemia, or significant electrolyte imbalance. Lipase and transaminases not diagnostic. Initial troponin x [address] scans were independently reviewed by myself and radiology. CT scan of the chest does not show any sign of PE or pneumonia. CT of the belly is concerning for swirling of the mesentery around the SMA. There is no distinct ischemia, however concern is elevated as this could be the cause of the patient's symptoms. Case was discussed with the on-call surgical team, and lactic acid and angiography of the abdomen were ordered. Patient remained in stable condition until the time of shift change. Case was discussed with my colleague, NENA Wilburn, who will assume care at this time. Please see Ms. Amadou's dictation for further patient course, plan, and disposition. The chart was completed utilizing [employer] Voice Recognition Software. Grammatical errors, random word insertions, pronoun errors, and incomplete sentences are an occasional consequence of this system due to software limitations, ambient noise, and hardware issues. Any formal questions or concerns about the content, text, or information contained within the body of this dictation should be directly addressed to the provider for clarification. Impression & Plan Abdominal pain, Nausea & vomiting Discharge Plan Visit Data Chief Complaint: Shortness of Breath/Dyspnea Stated Complaint: SOB, RT BACK PAIN ED Provider: Sandra Phelan ED Midlevel Provider: Wanda Tobar Discharge Problem: Abdominal pain, Nausea & vomiting Patient Disposition: Admitted As Inpatient Condition: Fair Discharge Instructions Interventions: ED Discharge Assessment Last Done: 06/19/25 11:20
--- NOTE | 2025-06-19 07:46 | CT Scan Report ---
EXAM: CT angio abdomen pelvis w con CLINICAL HISTORY: eval for SMA/ischemic gut TECHNIQUE: Contrast enhanced thin slice CT angiography scan of the abdominal aorta was performed with intravenous contrast. Angiographic images were processed, 3D MIP images were acquired for interpretation. Contiguous axial images were obtained. Reformatted coronal and sagittal images were also reviewed. If IV contrast material had not been administered, the likelihood of detecting abnormalities relevant to the patients condition would have been substantially decreased. CT scan was performed according to ALARA (as low as reasonable achievable). COMPARISON: 06/20/2023 14:30:00 DIGITAL TRAFFIC COORDINATOR FINDINGS: Abdominal aorta is normal in course, calibre and opacification. Origin of coeliac artery, superior mesenteric artery , bilateral main renal and lumbar arteries are normal with no hemodynamically significant ostial stenosis noted. Common hepatic artery is directly originating from abdominal aorta. Bilateral common, external and internal iliac arteries are normal in course, caliber and opacification. Solid abdominal organs including liver, spleen, pancreas and bilateral kidneys reveal no significant abnormality. Bowel loops are grossly unremarkable. No evidence of ascites. IMPRESSION: No significant abnormality detected No other new interval abnormality since prior study. Electronically signed by Gee Frias 06-19-2025 07:41 AM
--- NOTE | 2025-06-19 08:33 | History & Physical Report ---
Date of Service June 19, 2025 Assessment & Plan (1) Abdominal pain: (2) Nausea & vomiting: (3) Essential hypertension: Plan This patient is a 50-year-old female with history of HTN, impaired fasting glucose, obesity, HLD, depression/anxiety, seasonal allergies, and migraine headaches who presents to the ED with severe epigastric and RUQ abdominal pain and intractable nausea and vomiting not relieved with p.o. Zofran at home. No blood in her vomit. She had a few loose stools overnight but no bloody stools or melena. She was also reporting some chest discomfort, and right posterior and anterior shoulder pain. Everything worsened over a few hours and was not relieved with ibuprofen. Denies fevers or chills. She recently traveled to and from [facility] by car which was a 6-hour drive each way but her CT angiogram of the chest was negative for PE. In the ED, she had an elevated lactate at 2.2, a mildly elevated WBC count at 11, otherwise labs including LFTs were unremarkable. A CT of the A/P showed a grossly distended gallbladder, a fat-containing umbilical hernia, and partial twisting of the mesentery with swirling of the superior mesenteric vein adjacent to the superior mesenteric artery. A CT angiogram of the abdomen/pelvis was negative. She will be admitted for severe abdominal pain, nausea/vomiting, and consultation with general surgery. #Severe abdominal pain/intractable nausea/vomiting-suspect acute cholecystitis with possible recently passed gallstone/symptomatic cholelithiasis causing the sudden onset of pain. LFTs normal now but could be early for them to be elevated. There is concern with this possible partial twisting of the mesentery and the signs of inflammation especially given the elevated lactate at 2.2. Gallbladder severely distended on CT. Patient has been on to his appetite for the last year and has lost 40 pounds which I do believe will put her at risk for development of gallbladder issues. - Admit to medical/surgical floor and consult general surgery for further evaluation - Start antibiotics for acute cholecystitis with ceftriaxone and metronidazole - Keep n.p.o. and continue fluids with normal saline at 125 mL/h - Follow serial lactate - IV Dilaudid and IV acetaminophen ordered for pain control - Follow CBC, CMP, and magnesium in the morning - Check gallbladder ultrasound - IV Zofran and Phenergan as needed for nausea #HTN-BPs somewhat elevated secondary to pain - Hold home propranolol and HCTZ for now - Can give IV hydralazine if SBP greater than 180 or DBP greater than 110 - Pain control will help bring BP down #Impaired fasting glucose/obesity-has lost 40 pounds over the last year and does not take anything for impaired fasting glucose - Hold home tirzepatide #Migraine headaches-no acute issues, follows with neurology - Hold home propranolol #Seasonal allergies-no acute issues - Hold home Claritin #Anxiety/depression-no acute issues - Give venlafaxine in the morning with small sip of water as this can cause withdrawal if held for more than 1 or 2 days DVT prophylaxis-SCDs Disposition-admit to med/surgical unit. Discussed all care with at the bedside at the time of admission History of Present Illness Chief Complaint: Severe abdominal pain, vomiting Primary Care Provider: NENA Rod This patient is a 50-year-old female with history of HTN, impaired fasting glucose, obesity, HLD, depression/anxiety, seasonal allergies, and migraine headaches who presents to the ED with severe epigastric and RUQ abdominal pain and intractable nausea and vomiting not relieved with p.o. Zofran at home. No blood in her vomit. She had a few loose stools overnight but no bloody stools or melena. She was also reporting some chest discomfort, and right posterior and anterior shoulder pain. Everything worsened over a few hours and was not relieved with ibuprofen. Denies fevers or chills. She recently traveled to and from [facility] by car which was a 6-hour drive each way but her CT angiogram of the chest was negative for PE. In the ED, she had an elevated lactate at 2.2, a mildly elevated WBC count at 11, otherwise labs including LFTs were unremarkable. A CT of the A/P showed a grossly distended gallbladder, a fat-containing umbilical hernia, and partial twisting of the mesentery with swirling of the superior mesenteric vein adjacent to the superior mesenteric artery. A CT angiogram of the abdomen/pelvis was negative. She will be admitted for severe abdominal pain, nausea/vomiting, and consultation with general surgery. Allergies Allergy/AdvReac Type Severity Reaction Status Date / Time egg Allergy Severe _ Verified 06/19/25 08:16 Home Medications Medication Instructions Recorded Confirmed Type loratadine 10 mg tablet (Claritin) 10 mg PO QAM 07/23/19 06/19/25 History propranolol 120 mg capsule,24 120 mg PO DAILY #30 caps 10/29/24 06/19/25 Rx hr,extended release venlafaxine 150 mg 150 mg PO QAM #30 caps 12/03/24 06/19/25 Rx capsule,extended release 24 hr venlafaxine 75 mg capsule,extended 75 mg PO QAM #30 caps 12/03/24 06/19/25 Rx release 24 hr tirzepatide (weight loss) 12.5 12.5 mg (0.5 mL) subcut Q7D #6 mL 04/09/25 06/19/25 Rx mg/0.5 mL subcutaneous pen injector hydrochlorothiazide 25 mg tablet 25 mg PO QAM 06/19/25 06/19/25 History Past Med/Surg History Problem List (Updated 06/19/25 @ 08:37 by Belia Hudson MD) Nausea & vomiting Abdominal pain Obesity, Class II, BMI 35-39.9 Hypercalciuria Essential hypertension Hyperparathyroidism Colon cancer screening Vitamin D deficiency Encounter for pre-operative examination Menorrhagia Migraine headache (Acute) Gluten intolerance (Acute) ROSALIO II (cervical intraepithelial neoplasia II) (Acute) Nephrolithiasis Obesity Low grade squamous intraepithelial lesion (LGSIL) on cervical Pap smear (Acute) hyster to resolve Impaired fasting glucose (Chronic) Hyperlipidemia (Chronic) Depression (Acute) Medical History Migraine Kidney stones Iron deficiency anemia Surgical History History of esophagogastroduodenoscopy (EGD) History of lithotripsy Hx of tubal ligation H/O oral surgery tooth extractions H/O: hysterectomy Family History Grandfather (Maternal) Coronary heart disease Myocardial infarction Mother Diabetes Depression Hypercholesteremia Hypertension FH: colonic polyps Grandmother (Maternal) Depression Sister Epilepsy Father Hypertension FH: colonic polyps Denies family history of Ovarian cancer Prostate cancer Breast cancer Colorectal cancer Social History Smoking Status: Never smoker Second Hand Exposure: No; Do You Dip or Chew Tobacco: No; Hx Alcohol Use: Yes Alcohol type: wine Hx Substance Use: No Preferred Language: Afghan Communication Ability: Effective Shooting Gallery Operator Required: No Beliefs That Will Affect Care: None marital status: Current Living Situation: Spouse current occupational status: employed Feels Safe at Home: Yes Childhood Exposure to Second-Hand Smoke: Yes Diet: regular caffeine: Yes Dental Care, Regularly: Yes Physical Activity Frequency: 1-2 Times per Week Seatbelt Use: always Sunscreen Use: Yes Assistive Devices: Glasses Review of Systems Review of Systems: All systems reviewed & are unremarkable except as noted in HPI & below Physical Exam Constitutional: WD/WN, vitals as above Eyes: PERRL, conjunctivae normal, anicteric sclerae ENMT: external ear and nose normal, oropharynx normal (Except tongue a little dry) Neck: trachea midline, no thyromegaly Respiratory: normal respiratory effort, lungs clear to auscultation Cardiovascular: RRR, no murmur, no edema Chest (Breasts): Chest: normal inspection of chest Gastrointestinal (Abdomen): Inspection/Auscultation: abdomen normal to inspection and + hypoactive bowel sounds Percussion/Palpation: + abdomen tender (Positive TTP mostly in epigastric and RUQ, periumbilical) and abdomen soft; no guarding and abdomen not rigid Positive Gottlieb sign Musculoskeletal: Extremities: extremities normal to inspection; no cyanosis and no clubbing Skin: no rashes, warm and dry Neurologic: moves all extremities and awake; no focal motor deficits Psychiatric: A+Ox3, euthymic affect Lymphatic: no lymphedema Results & Data Results & Data Vital Signs (Past 12 Hours) Vital Signs Temp Pulse Pulse Resp BP BP Pulse Ox 06/19/25 07:14 75 14 133/91 99 06/19/25 04:09 98 06/19/25 04:08 99 06/19/25 04:05 90 06/19/25 03:51 36.8 C 77 20 173/100 H 98 O2 Del Method 06/19/25 07:14 Room Air 06/19/25 04:09 06/19/25 04:08 Room Air 06/19/25 04:05 06/19/25 03:51 Room Air Laboratory Results CBC, CMP, troponin, lactate, lipase, UA reviewed Diagnostic Findings CTA chest, CTA abdomen/pelvis, CT abdomen/pelvis reviewed ECG Additional Comments: ECG on 06/19/2025 at 4:01 AM with normal sinus rhythm with sinus arrhythmia, rate 75, no acute ischemic changes Code Status & VTE Plan Code Status Full code VTE Prophylaxis Plan VTE Prophylaxis will be ordered: Yes PG Care Time/CCT Total # of Minutes Spent Total Time Spent with Patient: Total time spent is greater than 50% in coordination of care (as documented) at patient's floor/unit and/or counseling patient: Coding Level of Care Code 51355 INT INP/OBS CARE 3/75MIN Diagnoses Abdominal pain R10.9 Nausea & vomiting R11.2 Essential hypertension I10
[2025-06-19] MEDS: ONDANSETRON INJ 2 MG/ML 2 ML VIAL ONE (08:48)
--- NOTE | 2025-06-19 08:56 | Surgery Consultation ---
Date of Consultation June 19, 2025 Assessment & Plan (1) Abdominal pain: likely a transient swirling of SB mesentery possible related to dehydration IVF clear liquids no surgical issues History of Present Illness History of Present Illness This is a 50YO female with history of previous REGINALDO who came to ED with abdominal pain with nausea and vomiting. She denies fevers or chills. A CT scan showed a partial swirling of her SB mesentery. She had a slightly elevated lactate at 2.2 ands a WBC of 11. A CT angiogram of the abdomen/pelvis was negative. She feels better after fluids. Allergies Allergy/AdvReac Type Severity Reaction Status Date / Time egg Allergy Severe _ Verified 06/19/25 08:16 Home Medications Medication Instructions Recorded Confirmed Type loratadine 10 mg tablet (Claritin) 10 mg PO QAM 07/23/19 06/19/25 History propranolol 120 mg capsule,24 120 mg PO DAILY #30 caps 10/29/24 06/19/25 Rx hr,extended release venlafaxine 150 mg 150 mg PO QAM #30 caps 12/03/24 06/19/25 Rx capsule,extended release 24 hr venlafaxine 75 mg capsule,extended 75 mg PO QAM #30 caps 12/03/24 06/19/25 Rx release 24 hr tirzepatide (weight loss) 12.5 12.5 mg (0.5 mL) subcut Q7D #6 mL 04/09/25 06/19/25 Rx mg/0.5 mL subcutaneous pen injector Patient History Medical History Migraine Kidney stones Iron deficiency anemia Surgical History History of esophagogastroduodenoscopy (EGD) History of lithotripsy Hx of tubal ligation H/O oral surgery tooth extractions H/O: hysterectomy Family History Grandfather (Maternal) Coronary heart disease Myocardial infarction Mother Diabetes Depression Hypercholesteremia Hypertension FH: colonic polyps Grandmother (Maternal) Depression Sister Epilepsy Father Hypertension FH: colonic polyps Denies family history of Ovarian cancer Prostate cancer Breast cancer Colorectal cancer Social History Smoking Status: Never smoker Second Hand Exposure: No; Do You Dip or Chew Tobacco: No; Hx Alcohol Use: Yes Alcohol type: wine Hx Substance Use: No Preferred Language: Frisian Communication Ability: Effective Bean Weigher Required: No Beliefs That Will Affect Care: None marital status: Current Living Situation: Spouse current occupational status: employed Feels Safe at Home: Yes Childhood Exposure to Second-Hand Smoke: Yes Diet: regular caffeine: Yes Dental Care, Regularly: Yes Physical Activity Frequency: 1-2 Times per Week Seatbelt Use: always Sunscreen Use: Yes Assistive Devices: Glasses Review of Systems Constitutional: + anorexia; no fever and no chills Eyes: no problem reported Ear, Nose, Mouth, Throat: no problem reported Respiratory: no cough and no dyspnea Cardiovascular: no chest pain Gastrointestinal: + abdominal pain, + nausea, + vomiting a nd + change in bowel habits Genitourinary: no dysuria Musculoskeletal: no back pain Integumentary: no problem reported Neurologic: no localized weakness and no generalized weakness Psychiatric: no behavioral changes Hematologic / Lymphatic: no easy bleeding and no easy bruising Physical Exam Constitutional: WD/WN, vitals as above Eyes: PERRL, conjunctivae normal, anicteric sclerae ENMT: external ear and nose normal, oropharynx normal Respiratory: normal respiratory effort, lungs clear to auscultation Cardiovascular: RRR, no murmur, no edema Gastrointestinal (Abdomen): Inspection/Auscultation: abdomen normal to inspec tion and normal bowel sounds; abdomen not distended Percussion/Palpation: + abdomen tender and abdomen soft; no guarding, abdomen not rigid and no hernia Musculoskeletal: Head/Neck/Chest: normocephalic and head atraumatic Skin: no rashes, warm and dry Results & Data Vital Signs (Past 12 Hours) Vital Signs Temp Pulse Pulse Resp BP BP Pulse Ox 06/19/25 07:14 75 14 133/91 99 06/19/25 04:09 98 06/19/25 04:08 99 06/19/25 04:05 90 06/19/25 03:51 36.8 C 77 20 173/100 H 98 O2 Del Method 06/19/25 07:14 Room Air 06/19/25 04:09 06/19/25 04:08 Room Air 06/19/25 04:05 06/19/25 03:51 Room Air Diagnostic Findings EXAM: CT angio abdomen pelvis w con CLINICAL HISTORY: eval for SMA/ischemic gut TECHNIQUE: Contrast enhanced thin slice CT angiography scan of the abdominal aorta was performed with intravenous contrast. Angiographic images were processed, 3D MIP images were acquired for interpretation. Contiguous axial images were obtained. Reformatted coronal and sagittal images were also reviewed. If IV contrast material had not been administered, the likelihood of detecting abnormalities relevant to the patients condition would have been substantially decreased. CT scan was performed according to ALARA (as low as reasonable achievable). COMPARISON: 06/20/2023 14:30:00 BREAD DOUGH MIXER FINDINGS: Abdominal aorta is normal in course, calibre and opacification. Origin of coeliac artery, superior mesenteric artery , bilateral main renal and lumbar arteries are normal with no hemodynamically significant ostial stenosis noted. Common hepatic artery is directly originating from abdominal aorta. Bilateral common, external and internal iliac arteries are normal in course, caliber and opacification. Solid abdominal organs including liver, spleen, pancreas and bilateral kidneys reveal no significant abnormality. Bowel loops are grossly unremarkable. No evidence of ascites. IMPRESSION: No significant abnormality detected No other new interval abnormality since prior study.
[2025-06-19] MEDS ORDERED: PROMETHAZINE 12.5 MG/50.5 ML BAG IV PRN (09:09)
[2025-06-19] MEDS: ONDANSETRON INJ 2 MG/ML 2 ML VIAL IV STA (09:13)
[2025-06-19] MEDS: metroNIDAZOLE 500 MG/100 ML BAG IV STA (09:15)
[2025-06-19] MEDS: cefTRIAXone SODIUM 2,000 MG/50 ML BAG IV STA (09:15)
--- NOTE | 2025-06-19 10:12 | Ultrasound Report ---
US gallbladder CLINICAL HISTORY: distended GB on CT,severe abd pain COMPARISON STUDY: CT scan earlier today FINDINGS: Pancreas is obscured. Liver is grossly unremarkable measuring 14 cm. There is normal direct ion of flow in the portal vein. There are multiple gallstones and gallbladder sludge. Gallbladder is distended. No gallbladder wall thickening. No pericholecystic fluid or ascites. Common bile duct chad ures normal diameter of 4 mm. Right kidney shows no hydronephrosis. IMPRESSION: Gallstones and gallbladder distention with no specific evidence of cholecystitis. ACT 112: Negative or not required by law. Electronically signed by: Niels Anderson M.D. 06/19/2025 10:10 AM
--- NOTE | 2025-06-19 11:16 | History & Physical Bridge Note ---
Date of Service June 19, 2025 History & Physical Bridge Note Patient with N/V and below findings; likely symptoms related to GB. Will plan lap reid in AM. US gallbladder CLINICAL HISTORY: distended GB on CT,severe abd pain COMPARISON STUDY: CT scan earlier today FINDINGS: Pancreas is obscured. Liver is grossly unremarkable measuring 14 cm. There is normal direction of flow in the portal vein. There are multiple gallstones and gallbladder sludge. Gallbladder is distended. No gallbladder wall thickening. No pericholecystic fluid or ascites. Common bile duct measures normal diameter of 4 mm. Right kidney shows no hydronephrosis. IMPRESSION: Gallstones and gallbladder distention with no specific evidence of cholecystitis.
[2025-06-19] MEDS ORDERED: HYDROmorphone INJ 0.5 MG/0.5 ML SYR IV PRN (11:33)
[2025-06-19] MEDS ORDERED: ONDANSETRON INJ 2 MG/ML 2 ML VIAL IV PRN (11:33)
[2025-06-19] MEDS: SODIUM CHLORIDE 0.9% 1,000 ML IV SCH (13:00)
[2025-06-19] MEDS: HYDROmorphone INJ 1 MG/ML SYRINGE IV PRN (13:03)
[2025-06-19] MEDS: ACETAMINOPHEN 1,000 MG/100 ML VIAL IV PRN (17:09)
[2025-06-19] MEDS: metroNIDAZOLE 500 MG/100 ML BAG IV SCH (17:11)
--- NOTE | 2025-06-20 07:09 | Hospitalist Progress Note ---
Date of Service June 20, 2025 Assessment & Plan (1) Abdominal pain: (2) Nausea & vomiting: (3) Essential hypertension: Plan This patient is a 50-year-old female with history of HTN, impaired fasting glucose, obesity, HLD, depression/anxiety, seasonal allergies, and migraine headaches who presents to the ED with severe epigastric and RUQ abdominal pain and intractable nausea and vomiting not relieved with p.o. Zofran at home. In the ED, she had an elevated lactate at 2.2, a mildly elevated WBC count at 11, otherwise labs including LFTs were unremarkable. A CT of the A/P showed a grossly distended gallbladder, a fat-containing umbilical hernia, and partial twisting of the mesentery with swirling of the superior mesenteric vein adjacent to the superior mesenteric artery. A CT angiogram of the abdomen/pelvis was negative. No s/p cholecystectomy, tolerating full liquids well. #Acute cholecystitis #S/p cholecystectomy Doing well postop day 0 - Continue ceftriaxone and metronidazole for susceptibility to intraabdominal infection - Tolerating full liquids, advance as tolerated - Lactate downtrending from day prior - IV Dilaudid and IV acetaminophen ordered for pain control - Follow CBC, CMP, and magnesium in the morning - Check gallbladder ultrasound - IV Zofran and Phenergan as needed for nausea #HTN-BPs somewhat elevated secondary to pain - Hold home propranolol and HCTZ for now - Can give IV hydralazine if SBP greater than 180 or DBP greater than 110 - Pain control will help bring BP down #Impaired fasting glucose/obesity-has lost 40 pounds over the last year and does not take anything for impaired fasting glucose - Hold home tirzepatide #Migraine headaches-no acute issues, follows with neurology - Hold home propranolol #Seasonal allergies-no acute issues - Hold home Claritin #Anxiety/depression-no acute issues - Give venlafaxine in the morning with small sip of water as this can cause with drawal if held for more than 1 or 2 days DVT prophylaxis- SCDs Disposition- med/surgical unit Admission and Anticipated Discharge Date Admission Date: June 19, 2025 Supervising Physician Co-Signing Physician Notes I personally examined the patient and verified all rg points of history and exam, discussed case, and agree with decision making with Dr Sage with the following additions/exceptions: S-Pt seen after lap reid and is feeling much improved. No nausea, tolerating full liquids. SHe had pain all night and LFTs and WBC count increased this AM. I discussed her care with Surgery this AM. She reports some pain at site of incisions and also some occasional sharp right upper shoulder and chest pains since surgery now improving. O- Vitals Reviewed Gen: [AAOx3, NAD] HEENT: [anicteric sclerae, EOMI] CV: [Reg rhythm, mild tachycardia no mgr nl S1S2] Pulm: [CTAB no wcr] Abd: [+BS soft NT ND no masses or hernias, lap incisions with dermabond, c/d/i] Ext: [no edema] Skin: [no rashes, warm/dry] Neuro: [full strength throughout] CBC, BMP, LFTs reviewed A/P: 50 yo female here with acute calculous cholecystitis, s/p lap cholecystectomy, found to have gangrenous GB. Improved, continue IV abx, IVFs can be done after this post-op liter. Continue pain control, f/u path when available. Advance diet as tolerated-defre to surgery. WIll likely need po abx on discharge given presence of purulent fluid intra-abdominally on surgery but will d/w SUrgery resume home propranolol in AM given rebound tachycardia Possible dc to home in 1-2 days Subjective Tammy was seen and evaluated at bedside this AM, appearing tired but well. Denies any pain or discomfort. Had urinated with assistance, no BM yet. Tolerated tomato soup and vanilla ice cream already. Physical Exam Physical Exam: Gen: appearing well but tired, no acute distress HEENT: moist mucus membranes CV: RRR, no m/r/g Resp: clear to auscultation b/l, no w/r/R GI/Abd: hypoactive BS, 4 healing incision valenzuela at trochar sites, slightly tender to palpation to upper abdomen, no distension or guarding MSK: 5/5 strength in all ext Neuro: no facial droop, no focal deficits Results & Data Results & Data Vital Signs (Past 12 Hours) Vital Signs Temp Pulse Resp BP Pulse Ox O2 Del Method 06/20/25 06:58 37.2 C 117 H 16 112/74 94 Room Air 06/19/25 23:06 36.9 C 96 H 16 116/68 93 Room Air Resident Activity Tracking Resident Involvement: Resident Care Provided Care Provided: Adult Hospital Medicine
[2025-06-20] MEDS: cefTRIAXone SODIUM 2,000 MG/50 ML BAG IV SCH (07:15)
[2025-06-20] MEDS ORDERED: DEXAMETHASONE SOD INJ 4 MG/ML VIAL ONE (07:21)
[2025-06-20] MEDS ORDERED: SUGAMMADEX SODIUM 200 MG/2 ML VIAL IV ONE (07:21)
[2025-06-20] MEDS ORDERED: PROPOFOL IV EMULSION 10 MG/ML 20 ML VIAL IV ONE (07:21)
[2025-06-20] MEDS ORDERED: ONDANSETRON INJ 2 MG/ML 2 ML VIAL ONE (07:21)
[2025-06-20] MEDS ORDERED: MIDAZOLAM HCL 1 MG/ML 2ML VIAL ONE (07:21)
[2025-06-20] MEDS ORDERED: ROCURONIUM BROMIDE 10 MG/ML 5 ML VIAL IV ONE (07:21)
[2025-06-20 07:22] LABS: Hematocrit (blood only) 37.7 % (37.0-47.0); Hemoglobin 12.9 g/dl (12.0-16.0); Immature Granulocytes # (auto) 0.13 K/uL (0.01-0.20); Immature Granulocytes % (auto) 0.6 %; Mean Corpuscular Hemoglobin 31.1 pg (25.0-34.0); Mean Corpuscular Volume 90.8 fL (80.0-100.0); Platelet Count 258 K/uL (130-400); RDW Standard Deviation 43.5 fL (36.4-46.3); Red Blood Count 4.15 M/uL (4.20-5.40); White Blood Count 20.21 K/ul (4.8-10.8)
--- NOTE | 2025-06-20 07:32 | Surgery Progress Note ---
Date of Service June 20, 2025 Assessment & Plan (1) Nausea & vomiting: (2) Abdominal pain: Plan 50-year-old woman with what appears to be developing acute cholecystitis. We discussed the risks and benefits of laparoscopic cholecystectomy. All her questions were answered and she is agreeable to proceed with the surgery. We will take her to the operating room at the earliest convenience. Due to the finding on the CT scan, we will do a laparoscopic exploration to make sure there is no twisted bowel. Admission and Anticipated Discharge Date Admission Date: June 19, 2025 Subjective She continues to have fairly severe right upper quadrant abdominal pain radiating to her back and right shoulder. She has been on pain medications all night. Physical Exam Physical Exam: NAD, A&O x 3 NCAT, no scleral icterus Abdomen: Soft, TTP in RUQ/RLQ Results & Data Vital Signs (Past 12 Hours) Vital Signs Temp Pulse Resp BP Pulse Ox O2 Del Method 06/20/25 06:58 37.2 C 117 H 16 112/74 94 Room Air 06/19/25 23:06 36.9 C 96 H 16 116/68 93 Room Air Laboratory Results 06/20/25 06/19/25 Range/Units 07:02 08:50 WBC 20.21 H (4.8-10.8) K/ul RBC 4.15 L (4.20-5.40) M/uL Hgb 12.9 (12.0-16.0) g/dl Hct 37.7 (37.0-47.0) % MCV 90.8 (80.0-100.0) fL MCH 31.1 (25.0-34.0) pg MCHC 34.2 (32.0-36.0) g/dL RDW Std Deviation 43.5 (36.4-46.3) fL RDW Coeff of [place] 13.0 (11.5-14.5) % Plt Count 258 (130-400) K/uL MPV 10.2 (9.4-12.4) fL Immature Gran % (Auto) 0.6 % Neut % (Auto) 81.6 % Lymph % (Auto) 7.1 % Island % (Auto) 10.6 % Eos % (Auto) 0.0 % Baso % (Auto) 0.1 % Neut # (Auto) 16.47 H (1.40-6.50) K/uL Lymph # (Auto) 1.44 (1.20-3.40) K/uL [place] # (Auto) 2.14 H (0.11-0.59) K/uL Eos # (Auto) 0.01 (0.00-0.50) K/uL Baso # (Auto) 0.02 (0.00-0.20) K/uL Immature Gran # (Auto) 0.13 (0.01-0.20) K/uL Sodium Pending Potassium Pending Chloride Pending Carbon Dioxide Pending Anion Gap Pending BUN Pending Creatinine Pending Est Cr Clr Drug Dosing Pending eGFR Pending BUN/Creatinine Ratio Pending Glucose Pending Lactate 1.3 (0.4-2.0) mmol/L Calcium Pending Magnesium Pending Total Bilirubin Pending AST Pending ALT Pending Alkaline Phosphatase Pending Total Protein Pending Albumin Pending Globulin Pending Albumin/Globulin Ratio Pending
[2025-06-20 07:38] LABS: Alanine Aminotransferase 25.0 U/L (7-52); Albumin Globulin Ratio 1.4 (0.9-2); Alkaline Phosphatase 48.0 U/L (34-104); Anion Gap 6.0 (3-11); Bilirubin,Total 0.6 mg/dl (0.2-1.0); Blood Urea Nitrogen 6.0 mg/dl (6-23); Calcium 8.0 mg/dl (8.6-10.3); Carbon Dioxide 28.0 mmol/L (21-32); Chloride 106.0 mmol/L (98-107); Creatinine Clr Calc Pharmacy 97.5 ml/min; Globulin 2.5 gm/dl (2.5-4.0); Glucose 132.0 mg/dl (70-99(Fasting)); Magnesium 1.5 mg/dl (1.7-2.4); Potassium 3.3 mmol/L (3.5-5.1); Sodium 140.0 mmol/L (136-145); Total Protein 6.0 gm/dl (6.0-8.3)
[2025-06-20] MEDS ORDERED: ATROPINE SULFATE 0.1 MG/ML 10ML SYR IV PRN (08:19)
[2025-06-20] MEDS ORDERED: ONDANSETRON INJ 2 MG/ML 2 ML VIAL IV PRN (08:19)
[2025-06-20] MEDS ORDERED: PROMETHAZINE HCL 6.25 MG in SODIUM CHLORIDE 0.9% 50 ML IV PRN (08:19)
[2025-06-20] MEDS: MAGNESIUM SULFATE / D5W 1 GM/100 ML BAG IV ONE (08:54)
[2025-06-20] MEDS ORDERED: ESMOLOL HCL INJ 10 MG/ML 10ML VIAL IV ONE (09:24)
[2025-06-20] MEDS ORDERED: PHENYLEPHRINE 100MCG/ML 5ML SYR ONE (09:29)
[2025-06-20] MEDS: FLOSEAL HEMOSTATIC MATRIX 10ML TOP ONE (10:05)
[2025-06-20] MEDS: BUPIVACAINE/EPINEPHRINE 0.25% 1:200,000 30 ML VIAL ONE (10:08)
--- NOTE | 2025-06-20 10:11 | Post Operative Brief Note ---
Immediate Post Op Note Date of Surgery June 20, 2025 Pre & Post Diagnosis Operation Date: 06/20/25 08:40 Pre-Op Diagnosis: Cholecystitis Post-Op Diagnosis: Cholecystitis I identified the patient and participated in the time-out.: Yes Procedure Operation Date: 06/20/25 08:40 Actual Procedures p Laparoscopic Cholecystectomy(Not Applicable) - Vinny Tobar MD Surgeon Vinny Tobar MD Adoption Social Worker DEACON De Oliveira assisted with tissue retraction, camera op, closure Estimated Blood Loss 10 Findings Consistent with Post-Op Diagnosis
--- NOTE | 2025-06-20 10:13 | Operative Report ---
Post Operative Report Pre & Post Diagnosis Operation Date: 06/20/25 08:40 Pre-Op Diagnosis: Cholecystitis Post-Op Diagnosis: Cholecystitis I identified the patient and participated in the time-out.: Yes Procedure Operation Date: 06/20/25 08:40 Actual Procedures p Laparoscopic Cholecystectomy(Not Applicable) - Vinny Tobar MD Surgeon Vinny Tobar MD Slag Skimmer DEACON De Oliveira assisted with tissue retraction, camera op, closure Estimated Blood Loss 10 Findings Consistent with Post-Op Diagnosis gangrenous gallbladder with purulent fluid within the abdominal cavity. Specimens Gallbladder Drains none Anesthesia Type General Complications none Description of Procedure the patient was taken to the operating room, and placed supine on the operating table. A timeout was performed, perioperative antibiotics were administered, SCD boots were placed. After adequate anesthesia and analgesia was obtained, the abdomen was prepped and draped in the normal sterile fashion. Local anesthetic was injected into and around the proposed incision sites. An incision was made with a 15 blade scalpel in the supraumbilical region and carried down to the level of the fascia. The fascia was grasped with a trach hook, and a varies needle was used to enter the abdominal cavity. The abdomen was insufflated to a pressure of 15 mmHg, and a 11 mm trocar was placed in this location. A 10 mm, 30 degree laparoscope was placed into the abdominal cavity, and the abdomen was surveyed. There appeared to be turbid purulent fluid within the right upper quadrant. The omentum was adherent to the gallbladder. Two 5 mm trochars were placed along the right costal margin, and one 5 mm trocar was placed in the subxiphoid region under direct visualization. The omentum was peeled off the gallbladder, which revealed a gangrenous, distended gallbladder. This was drained with an 18-gauge aspiration needle. The gallbladder was grasped and retracted cephalad and laterally, exposing the triangle of [place]. Dissection began in the triangle with a combination of blunt dissection with the [place] dissector, and judicious use of the hook cautery. The cystic duct and cystic artery were dissected free circumferentially, and a critical view of safety was obtained. The cystic duct and cystic artery were clipped and transected, and the gallbladder was removed from the gallbladder fossa with the hook cautery. The camera was switched to a 5 mm, the gallbladder was placed in an Endo Catch bag, and removed via the supraumbilical port site. The camera was switched back to the 10 mm camera, and the abdomen was surveyed again. Hemostasis was checked and attended to with cautery as well as Floseal, and was excellent. The abdomen was copiously irrigated and suctioned free. Again hemostasis was checked and was excellent. All trochars were removed under direct visualization. The abdomen was desufflated. The fascia in the 11 mm port site was closed with a 0 Vicryl suture. The skin was closed with a running 4-0 Monocryl subcuticular stitch. Dermabond was applied. The patient tolerated the procedure without complication, and was transferred in stable condition to the PACU. All instrument, needle, and sponge counts were correct at the end of the case. My office manager executive assistant was necessary throughout the procedure for tissue retraction, possible camera operation, and closure of the wounds. I understand that section 1842(b)(7)(D) of the Social Security act generally prohibits Medicare physician fee schedule payment for the services of assistants at surgery in teaching hospitals when qualified residents are available to furnish such services. I certify that the services for which payment is claimed were medically necessary and that no qualified resident was available to perform the services. I further understand that these services are subject to postpayment review by the Medicare carrier. I attest to the content of the Intraoperative Record and any orders documented therein. Any exceptions are noted below.
[2025-06-20] MEDS: HYDROmorphone INJ 2 MG/ML SYR/VIAL IV PRN (10:33)
[2025-06-20] MEDS ORDERED: diphenhydrAMINE Capsule 25 MG CAP PO PRN (11:30)
[2025-06-20] MEDS: POTASSIUM CHLORIDE / WTR 10 MEQ/100 ML PLCT IV SCH (11:30)
[2025-06-20] MEDS: VENLAFAXINE HCL XR 75 MG CAPXR PO SCH (11:33)
[2025-06-20] MEDS: VENLAFAXINE HCL XR 150 MG CAPXR PO SCH (11:33)
--- NOTE | 2025-06-20 11:38 | Anesthesiology Progress Note ---
Date of Service June 20, 2025 Anesthesia Post Procedure Vital Signs Vital Signs: Temp Pulse Pulse Pulse Resp BP BP 06/20/25 11:30 36.8 C 112 H 16 131/84 06/20/25 11:05 36.8 C 114 H 15 115/88 06/20/25 10:55 109 H 15 121/89 06/20/25 10:45 113 H 14 141/83 H 06/20/25 10:35 118 H 17 155/79 H 06/20/25 10:28 36.5 C 123 H 17 137/100 06/20/25 08:00 37.5 C 115 H 20 131/88 06/20/25 07:10 06/20/25 06:58 37.2 C 117 H 16 112/74 06/19/25 23:06 36.9 C 96 H 16 116/68 06/19/25 14:30 06/19/25 14:10 36.9 C 79 16 152/98 H 06/19/25 13:15 06/19/25 13:14 06/19/25 12:36 91 H 14 06/19/25 12:00 105 H 15 148/94 H Pulse Ox O2 Del Method O2 Flow Rate 06/20/25 11:30 92 Nasal Cannula 2 06/20/25 11:05 94 Nasal Cannula 4 06/20/25 10:55 93 Nasal Cannula 4 06/20/25 10:45 93 Oxymask 5 06/20/25 10:35 97 Oxymask 5 06/20/25 10:28 95 Oxymask 5 06/20/25 08:00 94 Room Air 06/20/25 07:10 Nasal Cannula 2 06/20/25 06:58 94 Room Air 06/19/25 23:06 93 Room Air 06/19/25 14:30 Room Air 06/19/25 14:10 92 Room Air 06/19/25 13:15 96 Nasal Cannula 2 06/19/25 13:14 83 L Nasal Cannula 0 06/19/25 12:36 96 06/19/25 12:00 91 Pain Intensity Abdomen: Pain Intensity: 8 Transfer of Care Handoff Completed per policy Notes Mental Status: alert / awake / arousable Patient Amnestic to Procedure: Yes Nausea / Vomiting: adequately controlled Pain: adequately controlled Airway Patency, RR, SpO2: stable & adequate BP & HR: stable & adequate Hydration State: stable & adequate Anesthetic Complications: no major complications apparent and Pt Satisfied with anesthetic care
[2025-06-20] MEDS: KETOROLAC 30 MG/ML VIAL IV PRN (18:10)
[2025-06-20] MEDS ORDERED: ACETAMINOPHEN 325 MG TAB PO PRN (18:57)
--- NOTE | 2025-06-20 20:23 | Billing Data ---
Date of Service June 20, 2025 Coding Level of Care Code 30836 SUB INP/OBS CARE
[2025-06-21 06:10] LABS: Hematocrit (blood only) 34.6 % (37.0-47.0); Hemoglobin 11.4 g/dl (12.0-16.0); Immature Granulocytes # (auto) 0.09 K/uL (0.01-0.20); Immature Granulocytes % (auto) 0.6 %; Mean Corpuscular Hemoglobin 30.2 pg (25.0-34.0); Mean Corpuscular Volume 91.5 fL (80.0-100.0); Platelet Count 222 K/uL (130-400); RDW Standard Deviation 44.8 fL (36.4-46.3); Red Blood Count 3.78 M/uL (4.20-5.40); White Blood Count 14.99 K/ul (4.8-10.8)
[2025-06-21 06:29] LABS: Alanine Aminotransferase 35.0 U/L (7-52); Albumin Globulin Ratio 1.1 (0.9-2); Alkaline Phosphatase 44.0 U/L (34-104); Anion Gap 3.0 (3-11); Bilirubin,Total 0.3 mg/dl (0.2-1.0); Blood Urea Nitrogen 6.0 mg/dl (6-23); Calcium 8.1 mg/dl (8.6-10.3); Carbon Dioxide 33.0 mmol/L (21-32); Chloride 104.0 mmol/L (98-107); Creatinine Clr Calc Pharmacy 117.0 ml/min; Globulin 2.7 gm/dl (2.5-4.0); Glucose 89.0 mg/dl (70-99(Fasting)); Magnesium 2.0 mg/dl (1.7-2.4); Potassium 3.3 mmol/L (3.5-5.1); Sodium 140.0 mmol/L (136-145); Total Protein 5.7 gm/dl (6.0-8.3)
[2025-06-21] MEDS: PROPRANOLOL HCL 60 MG LA CAP PO SCH (08:32)
[2025-06-21] MEDS: POTASSIUM CHLORIDE CRTAB 20 MEQ TABCR PO SCH (08:34)
--- NOTE | 2025-06-21 10:55 | Surgery Progress Note ---
Date of Service June 21, 2025 Assessment & Plan (1) Nausea & vomiting: (2) Abdominal pain: Plan POD # 1 s/p laparoscopic cholecystectomy , gangrenous cholecystitis avss postop pain mild and controlled no n,v Plan: Okay from surgical standpoint for discharge this afternoon Discharge instructions reviewed follow up surgery office in 2 weeks Rx for pain medication sent to pharmacy, does not need abx on discharge Dr. Tobar has seen and examined pt, agrees with above. Admission and Anticipated Discharge Date Admission Date: June 20, 2025 Subjective feeling better, preop pain resolved tolerating diet, no n,v pain at incisions controlled no chest pain or shortness of breath urinating and ambulating without difficulty Physical Exam Constitutional: WD/WN, vitals as above cooperative and comfortable; no acute distress and not ill appearing Gastrointestinal (Abdomen): Inspection/Auscultation: abdomen normal to inspection, + abdominal wall ecchymosis (at umbilical incision) and + abdominal surgical incision (c/d/i with dermabond); abdomen not distended Percussion/Palpation: + abdomen tender (mild at incision sites) and abdomen soft; no guarding and abdomen not rigid Skin: no rashes, warm and dry Psychiatric: Orientation: alert and oriented x 3 Results & Data Vital Signs (Past 12 Hours) Vital Signs Temp Pulse Resp BP BP Pulse Ox O2 Del Method 06/21/25 07:45 36.5 C 97 H 16 120/76 93 Room Air 06/21/25 07:00 Room Air 06/21/25 07:00 36.8 C 103 H 16 123/78 92 Room Air 06/21/25 03:30 36.8 C 101 H 18 134/78 94 Room Air Laboratory Results 06/21/25 Range/Units 05:44 WBC 14.99 H (4.8-10.8) K/ul RBC 3.78 L (4.20-5.40) M/uL Hgb 11.4 L (12.0-16.0) g/dl Hct 34.6 L (37.0-47.0) % MCV 91.5 (80.0-100.0) fL MCH 30.2 (25.0-34.0) pg MCHC 32.9 (32.0-36.0) g/dL RDW Std Deviation 44.8 (36.4-46.3) fL RDW Coeff of [place] 13.2 (11.5-14.5) % Plt Count 222 (130-400) K/uL MPV 10.2 (9.4-12.4) fL Immature Gran % (Auto) 0.6 % Neut % (Auto) 77.9 % Lymph % (Auto) 10.1 % [place] % (Auto) 11.0 % Eos % (Auto) 0.3 % Baso % (Auto) 0.1 % Neut # (Auto) 11.67 H (1.40-6.50) K/uL Lymph # (Auto) 1.51 (1.20-3.40) K/uL [place] # (Auto) 1.65 H (0.11-0.59) K/uL Eos # (Auto) 0.05 (0.00-0.50) K/uL Baso # (Auto) 0.02 (0.00-0.20) K/uL Immature Gran # (Auto) 0.09 (0.01-0.20) K/uL Sodium 140 (136-145) mmol/L Potassium 3.3 L (3.5-5.1) mmol/L Chloride 104 (98-107) mmol/L Carbon Dioxide 33 H (21-32) mmol/L Anion Gap 3 (3-11) BUN 6 (6-23) mg/dl Creatinine 0.55 L (0.6-1.2) mg/dl Est Cr Clr Drug Dosing 117.0 ml/min eGFR 111.60 BUN/Creatinine Ratio 10.9 (10-20) Glucose 89 (70-99(Fasting)) mg/dl Calcium 8.1 L (8.6-10.3) mg/dl Magnesium 2.0 (1.7-2.4) mg/dl Total Bilirubin 0.3 (0.2-1.0) mg/dl AST 33 (13-39) U/L ALT 35 (7-52) U/L Alkaline Phosphatase 44 (34-104) U/L Total Protein 5.7 L (6.0-8.3) gm/dl Albumin 3.0 L (3.4-5.0) gm/dl Globulin 2.7 (2.5-4.0) gm/dl Albumin/Globulin Ratio 1.1 (0.9-2)
[2025-06-21 11:10] VITALS: PULSE 87
[2025-06-21 12:41] VITALS: RESP 15; TEMP 98.2; O2SAT 95
--- NOTE | 2025-06-21 14:28 | Discharge Summary ---
Date of Service June 21, 2025 Admission HPI Per Admitting Provider This patient is a 50-year-old female with history of HTN, impaired fasting glucose, obesity, HLD, depression/anxiety, seasonal allergies, and migraine headaches who presents to the ED with severe epigastric and RUQ abdominal pain and intractable nausea and vomiting not relieved with p.o. Zofran at home. No blood in her vomit. She had a few loose stools overnight but no bloody stools or melena. She was also reporting some chest discomfort, and right posterior and anterior shoulder pain. Everything worsened over a few hours and was not relieved with ibuprofen. Denies fevers or chills. She recently traveled to and from [facility] by car which was a 6-hour drive each way but her CT angiogram of the chest was negative for PE. In the ED, she had an elevated lactate at 2.2, a mildly elevated WBC count at 11, otherwise labs including LFTs were unremarkable. A CT of the A/P showed a grossly distended gallbladder, a fat-containing umbilical hernia, and partial twisting of the mesentery with swirling of the superior mesenteric vein adjacent to the superior mesenteric artery. A CT angiogram of the abdomen/pelvis was negative. She will be admitted for severe abdominal pain, nausea/vomiting, and consultation with general surgery. Admission Exam Per Admitting Provider Constitutional: WD/WN, vitals as above Eyes: PERRL, conjunctivae normal, anicteric sclerae ENMT: external ear and nose normal, oropharynx normal (Except tongue a little dry) Neck: trachea midline, no thyromegaly Respiratory: normal respiratory effort, lungs clear to auscultation Cardiovascular: RRR, no murmur, no edema Chest (Breasts): Chest: normal inspection of chest Gastrointestinal (Abdomen): Inspection/Auscultation: abdomen normal to inspection and + hypoactive bowel sounds Percussion/Palpation: + abdomen tender (Positive TTP mostly in epigastric and RUQ, periumbilical) and abdomen soft; no guarding and abdomen not rigid Positive Gottlieb sign Musculoskeletal: Extremities: extremities normal to inspection; no cyanosis and no clubbing Skin: no rashes, warm and dry Neurologic: moves all extremities and awake; no focal motor deficits Psychiatric: A+Ox3, euthymic affect Lymphatic: no lymphedema Principal Diagnosis acute cholecystitis Discharge Exam Gen: appearing well but tired, no acute distress HEENT: moist mucus membranes CV: RRR, no m/r/g Resp: clear to auscultation b/l, no w/r/R GI/Abd: hypoactive BS, 4 healing incision valenzuela at trochar sites, slightly te nder to palpation to upper abdomen, no distension or guarding MSK: 5/5 strength in all ext Neuro: no facial droop, no focal deficits Discharge Data Allergies Allergy/AdvReac Type Severity Reaction Status Date / Time egg Allergy Severe _ Verified 06/20/25 07:58 Consultations 06/19/25 08:31 Consult General Surgery Routine 06/19/25 09:19 ED Decision to Admit Stat 06/19/25 09:21 ED Decision to Admit Stat Procedures Performed Operation Date: 06/20/25 08:40 Actual Procedures p Laparoscopic Cholecystectomy(Not Applicable) - Vinny Tobar MD Ordered Studies 06/19/25 04:06 CT abd pelvis IV con only Stat CT angio chest PE protocol Stat 06/19/25 05:44 CT angio abdomen pelvis w con Stat 06/19/25 08:41 US gallbladder Stat Hospital Course (1) Acute cholecystitis: (2) S/P laparoscopic cholecystectomy: (3) Essential hypertension: Plan This patient is a 50-year-old female with history of HTN, impaired fasting glucose, obesity, HLD, depression/anxiety, seasonal allergies, and migraine headaches who presents to the ED with severe epigastric and RUQ abdominal pain and intractable nausea and vomiting not relieved with p.o. Zofran at home. In the ED, she had an elevated lactate at 2.2, a mildly elevated WBC count at 11, otherwise labs including LFTs were unremarkable. A CT of the A/P showed a grossly distended gallbladder, a fat-containing umbilical hernia, and partial twisting of the mesentery with swirling of the superior mesenteric vein adjacent to the superior mesenteric artery. A CT angiogram of the abdomen/pelvis was negative. RUQ US showed stones and sludge, GB distension but no pericholecystic fluid. CLinically she had acute calculous cholecystitis, was started on IV ceftriaxone and flagyl, and the next day she had persistent epigastric pain and AST started to rise, WBC count jumped up to 20. Underwent laparoscopic cholecystectomy on 06/20/25, she has been tolerating fluids and solids well, abdominal pain minimal, and bloodwork improving on all fronts. Based on her clinical improvement and medical stability, we are comfortable with her discharge home today with PCP followup next week and followup with the surgical team in 2 weeks. #Acute calculous cholecystitis, status post laparoscopic cholecystectomy-had gangrenous GB found in surgery Without complications, and has have been recovering well with minimal pain - has been passing gas but no BM reported yet, has been tolerating regular diet well - continue slow return to regular diet- take time with eating, advised to limit/avoid very heavy, fatty, and fried foods - continue pain medications as prescribed by surgery team - surgery team comfortable with discharge without continuing antibiotics #HTN- continue home propranolol 120mg daily, though this is primarily for migraines, which have been stable #Impaired fasting glucose/obesity - may continue your home tirzepatide weekly injections although may hold this until recovered from surgery - continue healthy balanced diet and exercise regimen #Migraine headaches-no acute issues, continue neurology followup as instructed - continue home propranolol as above #Seasonal allergies-no acute issues - may continue home Claritin #Anxiety/depression-no acute issues - continue venlafaxine 75mg each morning Total Time Total Time Spent Total Time Spent (In Minutes): 40 Discharge Plan Discharge Items Patient Disposition: Home - Self-Care Reason For Visit: ACUTE CALCULOUS COLECYSTITIS Discharge Diagnosis: acute gangrenous cholecystitis Condition on Discharge: Fair Activity: Per Instructions section Non-emergency contact: Primary Care Provider Call non-emergency contact if: your symptoms worsen and your pain is not controlled Follow-up/Referrals: Marbella Yen CRNP [Primary Care Provider] - 06/25/25 2:00 am Alta De Oliveira PA-C [Physician Front Office Coordinator] - Diet: Regular and Low Fat Ambulatory Orders: Basic Metabolic Panel (Routine) Timeframe: 3 Days Location: Determined by Patient Ordered By: Garrett Rios Attending Provider Instructions: You were evaluated and treated for acute cholecystitis, undergoing laparoscopic cholecystectomy on 06/20/25. You have been tolerating fluids and solids well, abdominal pain is minimal, and your bloodwork is improving on all fronts. Based on your clinical improvement and medical stability, we are comfortable with your discharge home today with PCP followup next week and followup with the surgical team in 2 weeks. #Acute cholecystitis, status post laparoscopic cholecystectomy You underwent surgery to remove your gallbladder, which was found to be very enlarged and appearing gangrenous. However the operation was without complications, and you have been recovering well. - continue slow return to your regular diet- take your time with eating, advised to limit/avoid very heavy, fatty, and fried foods - continue pain medications as prescribed by surgery team - surgery team comfortable with your discharge without continuing antibiotics #HTN- continue home propranolol 120mg daily, though this is primarily for migraines, which have been stable #Impaired fasting glucose/obesity - may continue your home tirzepatide weekly injections - continue healthy balanced diet and exercise regimen #Migraine headaches-no acute issues, continue neurology followup as instructed - continue home propranolol as above #Seasonal allergies-no acute issues - may continue home Claritin #Anxiety/depression-no acute issues - continue venlafaxine 75mg each morning 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 Let water run over area and pat dry. - Leave surgical glue on incisions, this will fall off on its own. - Call the surgeon's office with any questions or concerns - - (ex. temperature higher than 101 degrees F, excessive bleeding or pain). MEDICATIONS: - Resume previous medications unless instructed otherwise by your surgeon. - Alternate extra strength Tylenol and Ibuprofen as needed for mild to moderate pain -650 mg Tylenol every 6 hours as needed - Ibuprofen 600 mg every 6 hours as needed (take with food) - Percocet 1 every 6 hours, as needed for moderate to severe pain - Recommend daily stool softener (Colace) while taking narcotic pain medication to prevent constipation or straining. Drink plenty of water daily. FOLLOW UP VISIT: - If not already scheduled, please call the office to schedule a two week follow-up appointment. Office number Pending Studies at Discharge: Yes (surgical pathology, will be reviewed at postop visit) Stand-Alone Forms: My [facility], Smoking Cessation Medications and DC Order Prescriptions: New oxycodone-acetaminophen 5-325 mg tablet 1 tab PO Q6H PRN (Reason: pain) Qty: 10 0RF potassium citrate 10 mEq (1,080 mg) Tablet Extended Release 10 meq PO BID 30 Days Qty: 60 0RF Continued loratadine [Claritin] 10 mg tablet 10 mg PO QAM propranolol 120 mg capsule,extended release 24hr 120 mg PO DAILY Qty: 30 5RF venlafaxine 75 mg capsule,extended release 24hr 75 mg PO QAM Qty: 30 11RF Rx Instructions: To be taken with the 150mg Venlafaxine dose to = 225 mg total dose venlafaxine 150 mg capsule,extended release 24hr 150 mg PO QAM Qty: 30 11RF Rx Instructions: To be taken with the 75mg Venlafaxine dose to = 225 mg total dose tirzepatide (weight loss) 12.5 mg/0.5 mL pen injector 12.5 mg subcut Q7D Qty: 6 1RF Rx Instructions: Tuesday hydrochlorothiazide 25 mg tablet 25 mg PO QAM Discharge Orders: Discharge Order (Routine); Ordered 06/21/25 Ordered By: Garrett Patel/Other Patient Handouts: After Gallbladder Surgery, Having Laparoscopic Cholecystectomy, Cholecystectomy Dc Admission Data Admit Date/Time: 06/20/25 18:56 Attending Provider: Belia Hudson Admit Provider: Belia Hudson Primary Care Provider: Marbella Yen Other Providers: Belia Hudson; Vinny Tobar Other Interventions: Discharge Summary Assessment (RN) Last Done: 06/21/25 15:00 Supervising Physician Co-Signing Physician Notes I personally examined the patient and verified all rg points of history and exam, discussed case, and agree with decision making with Dr Sage with the following additions/exceptions: S-Pt significantly improved, only minimal pain at surgical sites, no further epigastric or right shoulder pain. Tolerating regular diet, passing flatus, no nausea. O- Vitals Reviewed Gen: [AAOx3, NAD] HEENT: [anicteric sclerae, EOMI] CV: [Reg rhythm, mild tachycardia no mgr nl S1S2] Pulm: [CTAB no wcr] Abd: [+BS soft NT ND no masses or hernias, lap incisions with dermabond, c/d/i] Ext: [no edema] Skin: [no rashes, warm/dry] Neuro: [full strength throughout] CBC, BMP, LFTs reviewed A/P: 50 yo female here with acute calculous cholecystitis, s/p lap cholecystectomy, found to have gangrenous GB. Much improved,stable for dc, no abx needed would consider holding terzepatide at least for a few weeks restart previous potassium citrate for K replacement with HCTZ but also for kidney stone prevention Resident Activity Tracking Resident Involvement: Resident Care Provided Care Provided: Adult Hospital Medicine
[2025-06-21 15:11] VITALS: BP 130/85
[2025-06-21] MEDS ORDERED: POTASSIUM CITRATE 10 MEQ TAB PO SCH (21:00)
--- NOTE | 2025-06-22 08:29 | Billing Data ---
Date of Service June 21, 2025 Coding Level of Care Code 88226 INP/OBS DISCH >30 MIN Time Spent (min) 35 Comment 35 min spent face to face time,discussion with specialists,review of labs
--- NOTE | 2025-06-22 09:09 | Electrocardiogram Report ---
Test Reason : Blood Pressure : */* mmHG Vent. Rate : 75 BPM Atrial Rate : 75 BPM P-R Int : 154 ms QRS Dur : 70 ms QT Int : 402 ms P-R-T Axes : 0 -2 16 degrees QTcB Int : 448 ms Normal sinus rhythm with sinus arrhythmia Low voltage QRS Borderline ECG When compared with ECG of 17-Aug-2021 12:38, Questionable change in QRS axis ST elevation now present in Lateral leads Nonspecific T wave abnormality no longer evident in Lateral leads Confirmed by Lonnie Wilkerson ([id number]) on 06/22/2025 9:09:05 AM Referred By: REFERRED SELF Confirmed By: Lonnie Wilkerson
== END 2025-06-21 15:24 | disposition home or self-care (01) ==
LOC: SUATTDRO → EDINP 03:45 → ED 03:45 → 3E 11:20